=== PATIENT | male | born 1995 | race Caucasian/White ===

== ENCOUNTER 2018-10-17 11:45 | Emergency (ER) | payer OTHER ==
--- NOTE | 2018-10-17 12:33 | ER ---
Nurse's Notes [facility] Name: Gamal Hassan Age: 23 yrs Sex: Male : 1995 Arrival Date: 10/17/2018 Time: 11:47 Bed Waiting Private MD: Jair Ohara Diagnosis: Influenza due to unidentified influenza virus;Bronchitis, not specified as acute or chronic Presentation: 10/17 12:04 Presenting complaint: Father states: Chills and cough since Thursday, exposure to flu A. la1 Transition of care: patient was not received from another setting of care. Onset of symptoms was October 17, 2018. Risk Assessment: Do you want to hurt yourself or someone else? Patient reports no desire to harm self or others. Initial Sepsis Screen: Does the patient meet any 2 criteria? No. Patient's initial sepsis screen is negative. Does the patient have a suspected source of infection? No. Patient's initial sepsis screen is negative. Care prior to arrival: None. 12:04 Method Of Arrival: Ambulatory la1 12:04 Acuity: VIKY 4 la1 Historical: - Allergies: 12:05 No Known Allergies; la1 - PMHx: 12:05 Hypothyroidism; la1 - Immunization history:: Adult Immunizations up to date. - Social history:: Smoking status: Patient/guardian denies using tobacco. - Ebola Screening: : No symptoms or risks identified at this time. Screenin:17 Abuse screen: Denies threats or abuse. Nutritional screening: No deficits noted. la1 Tuberculosis screening: No symptoms or risk factors identified. Fall Risk None identified. Assessment: 12:17 General: Appears in no apparent distress. Behavior is calm, cooperative. Pain: Denies la1 pain. Neuro: Level of Consciousness is awake, alert, obeys commands, Oriented to person, place, time, situation. Cardiovascular: Capillary refill < 3 seconds Patient's skin is warm and dry. Respiratory: Airway is patent Respiratory effort is even, unlabored, Respiratory pattern is regular, symmetrical, Breath sounds are coarse the patient has mild shortness of breath Parent/caregiver reports the patient having cough that is. GI: No signs and/or symptoms were reported involving the gastrointestinal system. : No signs and/or symptoms were reported regarding the genitourinary system. Vital Signs: 12:09 Weight 122.47 kg; Height 5 ft. 11 in. (180.34 cm); la1 12:11 Pulse 120; Resp 18; Temp 100.9; Pulse Ox 96% on R/A; la1 12:09 Body Mass Index 37.66 (122.47 kg, 180.34 cm) la1 ED Course: 11:47 Patient arrived in ED. rg4 11:47 Jair Ohara MD is Private Physician. rg4 12:00 [facility]C [facility] snw 12:00 Jason Foss MD is Attending Physician. snw 12:05 Triage completed. la1 12:05 Arm band placed on left wrist. la1 12:17 Patient has correct armband on for positive identification. la1 12:18 No provider procedures requiring assistance completed. Patient did not have IV access la1 during this emergency room visit. 12:32 Jair Ohara MD is Referral Physician. snw Administered Medications: No medications were administered Outcome: 12:32 Discharge ordered by MD. snw 12:45 Discharged to home ambulatory. la1 12:45 Condition: stable 12:45 Discharge instructions given to patient, Instructed on discharge instructions, follow up and referral plans. medication usage, Demonstrated understanding of instructions, follow-up care, medications, Prescriptions given X 3. 12:45 Patient left the ED. la1 Signatures: Jennifer Ramirez FNP-C FNP-[place] Ector Correia, RN RN la1 Swetha Sales rg4
--- NOTE | 2018-10-17 12:33 | EDPHYS ---
Physician Documentation [facility] Name: Gamal Hassan Age: 23 yrs Sex: Male : 1995 Arrival Date: 10/17/2018 Time: 11:47 Bed Waiting Private MD: Jair Ohara ED Physician Jason Foss HPI: 10/17 15:44 This 23 yrs old Male presents to ER via Ambulatory with complaints of Flu snw Symptoms. 15:44 Onset: The symptoms/episode began/occurred suddenly, 3 day(s) ago, and became snw persistent. Associated signs and symptoms: Pertinent positives: congestion, cough, fever, nasal discharge, sore throat. Modifying factors: The patient symptoms are alleviated by nothing. The patient has not experienced similar symptoms in the past, but family has similar symptoms, mother. The patient has not recently seen a physician. flu like s/s x 3 days. Historical: - Allergies: 12:05 No Known Allergies; la1 - PMHx: 12:05 Hypothyroidism; la1 - Immunization history:: Adult Immunizations up to date. - Social history:: Smoking status: Patient/guardian denies using tobacco. - Ebola Screening: : No symptoms or risks identified at this time. ROS: 15:44 Eyes: Negative for injury, pain, redness, and discharge. snw 15:44 Neck: Negative for injury, pain, and swelling, Cardiovascular: Negative for chest pain, palpitations, and edema. 15:44 Abdomen/GI: Negative for abdominal pain, nausea, vomiting, diarrhea, and constipation, Back: Negative for injury and pain, : Negative for injury, bleeding, discharge, and swelling, MS/Extremity: Negative for injury and deformity, Skin: Negative for injury, rash, and discoloration, Neuro: Negative for headache, weakness, numbness, tingling, and seizure. 15:44 Constitutional: Positive for body aches, chills, fatigue, fever, malaise, poor PO intake. 15:44 ENT: Positive for nasal discharge, sore throat. 15:44 Respiratory: Positive for cough, with no reported sputum. Exam: 15:44 Head/Face: Normocephalic, atraumatic. Eyes: Pupils equal round and reactive to light, snw extra-ocular motions intact. Lids and lashes normal. Conjunctiva and sclera are non-icteric and not injected. Cornea within normal limits. Periorbital areas with no swelling, redness, or edema. 15:44 Neck: Trachea midline, no thyromegaly or masses palpated, and no cervical lymphadenopathy. Supple, full range of motion without nuchal rigidity, or vertebral point tenderness. No Meningismus. Chest/axilla: Normal chest wall appearance and motion. Nontender with no deformity. No lesions are appreciated. 15:44 Abdomen/GI: Soft, non-tender, with normal bowel sounds. No distension or tympany. No guarding or rebound. No evidence of tenderness throughout. Back: No spinal tenderness. No costovertebral tenderness. Full range of motion. Skin: Warm, dry with normal turgor. Normal color with no rashes, no lesions, and no evidence of cellulitis. MS/ Extremity: Pulses equal, no cyanosis. Neurovascular intact. Full, normal range of motion. Neuro: Awake and alert, GCS 15, oriented to person, place, time, and situation. Cranial nerves II-XII grossly intact. Motor strength 5/5 in all extremities. Sensory grossly intact. Cerebellar exam normal. Normal gait. Psych: Awake, alert, with orientation to person, place and time. Behavior, mood, and affect are within normal limits. 15:44 Constitutional: The patient appears alert, awake, anxious, restless, uncomfortable. 15:44 ENT: TM's: are normal, Nose: nasal drainage, that is moderate, and is seen coming from both nares, that is clear, Mouth: is normal, Posterior pharynx: no acute changes, Voice: is normal. 15:44 Cardiovascular: Rate: tachycardic, Heart sounds: normal, normal S1and S2. 15:44 Respiratory: the patient does not display signs of respiratory distress, Respirations: normal, Breath sounds: + upper airway congestion. bronchitic cough. Vital Signs: 12:09 Weight 122.47 kg; Height 5 ft. 11 in. (180.34 cm); la1 12:11 Pulse 120; Resp 18; Temp 100.9; Pulse Ox 96% on R/A; la1 12:09 Body Mass Index 37.66 (122.47 kg, 180.34 cm) la1 MDM: 12:31 Patient medically screened. snw 15:47 Data reviewed: vital signs, nurses notes. Data interpreted: Pulse oximetry: on room air snw is 96 %. Interpretation: acceptable. Counseling: I had a detailed discussion with the patient and/or guardian regarding: the historical points, exam findings, and any diagnostic results supporting the discharge/admit diagnosis, the need for outpatient follow up, to return to the emergency department if symptoms worsen or persist or if there are any questions or concerns that arise at home. Special discussion: Based on the history and exam findings, there is no indication for further emergent testing or inpatient evaluation. I discussed with the patient/guardian the need to see the primary care provider for further evaluation of the symptoms. Administered Medications: No medications were administered Disposition: 10/18 11:54 Co-signature as Attending Physician, Jennifer BAUTISTA. Disposition: 10/17/18 12:32 Discharged to Home. Impression: Influenza due to unidentified influenza virus, Bronchitis, not specified as acute or chronic. - Condition is Stable. - Discharge Instructions: Acute Bronchitis, Adult, Fever, Adult, Influenza, Adult, How to Use an Inhaler, Cool Mist Vaporizer, Cough, Adult, Rehydration, Adult. - Prescriptions for Prednisone 20 mg Oral Tablet - take 2 tablet by ORAL route once daily for 5 days; 10 tablet. Albuterol Sulfate 90 mcg/actuation - inhale 1-2 puff by INHALATION route every 4-6 hours; 1 Inhaler. Zithromax 500 mg Oral Tablet - take 1 tablet by ORAL route once daily for 5 days; 5 tablet. - Work release form, Medication Reconciliation Form, Thank You Letter, Antibiotic Education, Prescription Opioid Use, Family Work Release form. - Follow up: Jair Ohara MD; When: 2 - 3 days; Reason: Recheck today's complaints, Continuance of care, Re-evaluation by your physician. Follow up: Emergency Department; When: As needed; Reason: Worsening of condition. Signatures: Jennifer Ramirez FNP-C FNP-[place] Ector Correia RN RN la1 Starr, Gregory, MD MD gs Corrections: (The following items were deleted from the chart) 10/17 12:45 12:32 10/17/2018 12:32 Discharged to Home. Impression: Influenza due to unidentified la1 influenza virus; Bronchitis, not specified as acute or chronic. Condition is Stable. Forms are Medication Reconciliation Form, Thank You Letter, Antibiotic Education, Prescription Opioid Use. Follow up: Jair Ohara; When: 2 - 3 days; Reason: Recheck today's complaints, Continuance of care, Re-evaluation by your physician. Follow up: Emergency Department; When: As needed; Reason: Worsening of condition. snw
[2018-10-17 13:00] VITALS: TEMP 100.9; O2SAT 96
== END 2018-10-17 12:45 | disposition home or self-care (01) ==
LOC: ER 11:45
DX: J11.1 Influenza due to unidentified influenza virus with other respiratory manifestations (principal); J40 Bronchitis, not specified as acute or chronic
CPT/HCPCS: 99281

== ENCOUNTER 2018-11-02 17:47 | Emergency (ER) | payer OTHER ==
[2018-11-02 18:52] LABS: Absolute Lymphocytes (CBC) 2.6 K/uL (0.7-4.9); Absolute Monocytes 0.8 K/uL (0.1-1.3); Absolute Neutrophil 5.4 K/uL (1.8-8.0); Basophils % 0.7 % (0-1.3); Eosinophils % 2.3 % (0-4.4); Hematocrit 42.1 % (39.6-49.0); Lymphocytes % 28.6 % (15.3-44.8); MPV 10.1 fL (7.6-11.3); Monocytes % 8.9 % (3.3-12.3); RBC Red Blood Cell Count 5.01 M/uL (4.33-5.43)
[2018-11-02 18:54] LABS: Protime INR 1.07
[2018-11-02 19:09] LABS: ALT/SGPT 41 U/L (12-78); AST/SGOT 15 U/L (15-37); Albumin 4.3 g/dL (3.4-5.0); Alkaline Phosphatase 70 U/L (45-117); BUN Blood Urea Nitrogen 14 mg/dL (7-18); Bicarbonate 29 mmol/L (21-32); Bilirubin Direct 0.2 mg/dL (0-0.2); Bilirubin Total 0.6 mg/dL (0.2-1.0); Glucose Level 89 mg/dL (74-106); NT PRO-BNP 11 pg/mL (<125); Potassium 3.7 mmol/L (3.5-5.1); Protein, Total 8.3 g/dL (6.4-8.2); Sodium Level 142 mmol/L (136-145); Troponin (Emerg Dept Use Only) < 0.02 ng/mL (0.0-0.045)
[2018-11-02] MEDS ORDERED: LORAZEPAM 1 MG TABLET ONE (19:21)
--- NOTE | 2018-11-02 19:36 | RAD REPORT ---
EXAM DESCRIPTION: Kayy Single View11/02/2018 7:10 pm CLINICAL HISTORY: Chest pain COMPARISON: 2013 FINDINGS: The lungs appear clear of acute infiltrate. The heart is normal size IMPRESSION: No acute abnormalities displayed
--- NOTE | 2018-11-02 20:24 | ER ---
Nurse's Notes [facility] Name: Gamal Hassan Age: 23 yrs Sex: Male : 1995 Arrival Date: 11/02/2018 Time: 17:50 Bed 6 Private MD: Jair Ohara Diagnosis: Shortness of breath Presentation: 11/02 17:59 Presenting complaint: Patient states: palpitation, fatigue, kevin arm weakness x sv "months". Denies CP and SOB at this time. Hx ND d/t synthetic marijuana. Transition of care: patient was not received from another setting of care. Onset of symptoms is unknown. Care prior to arrival: None. 17:59 Method Of Arrival: EMS sv 17:59 Acuity: VIKY 3 sv 19:22 Risk Assessment: Do you want to hurt yourself or someone else? Patient reports no ph desire to harm self or others. Initial Sepsis Screen: Does the patient meet any 2 criteria? No. Patient's initial sepsis screen is negative. Does the patient have a suspected source of infection? No. Patient's initial sepsis screen is negative. Historical: - Allergies: 18:01 No Known Allergies; sv - PMHx: 18:01 Hypothyroidism; Myocardial infarction; Heart Murmur; sv - PSHx: 18:01 None; sv - Immunization history:: Adult Immunizations unknown. - Social history:: Patient/guardian denies using alcohol, street drugs, The patient lives with family, Smoking status: Patient/guardian denies using tobacco. - Family history:: not pertinent. - Ebola Screening: : No symptoms or risks identified at this time. Screenin:22 Abuse screen: Denies threats or abuse. Denies injuries from another. Nutritional ph screening: No deficits noted. Tuberculosis screening: No symptoms or risk factors identified. Fall Risk None identified. Assessment: 18:30 General: Appears in no apparent distress. comfortable, obese, well groomed, Behavior is ph calm, cooperative, appropriate for age, Reports fatigue for >3 days, Denies fever, feeling ill. Pain: Denies pain. Neuro: Level of Consciousness is awake, alert, obeys commands, Oriented to person, place, time, situation, [employer] are equal bilaterally Moves all extremities. Full function Gait is steady, Speech is normal, Facial symmetry appears normal, Reports weakness in right arm and left arm that is intermittent. Cardiovascular: Reports fatigue, palpitations, shortness of breath, since approx 2 mnths Denies chest pain, nausea, syncope, vomiting, Capillary refill < 3 seconds in bilateral fingers Patient's skin is warm and dry. Rhythm is sinus tachycardia. Respiratory: Airway is patent Respiratory effort is even, unlabored, Respiratory pattern is regular, symmetrical. GI: No signs and/or symptoms were reported involving the gastrointestinal system. Patient currently denies abdominal pain, nausea, vomiting. Derm: Skin is intact, is healthy with good turgor, Skin is pink, warm \\T\\ dry. Musculoskeletal: Circulation, motion, and sensation intact. Range of motion: intact in all extremities. 19:00 General: Appears in no apparent distress. comfortable, Behavior is calm, cooperative, rr5 appropriate for age. Pain: Denies pain. Neuro: Level of Consciousness is awake, alert, obeys commands, Oriented to person, place, time, situation, [employer] Professor [employer] are equal bilaterally Reports numbness in right arm and left arm. Cardiovascular: Capillary refill < 3 seconds Patient's skin is warm and dry. Respiratory: Airway is patent Respiratory effort is even, unlabored, Respiratory pattern is regular, symmetrical. GI: No signs and/or symptoms were reported involving the gastrointestinal system. : No signs and/or symptoms were reported regarding the genitourinary system. EENT: No signs and/or symptoms were reported regarding the EENT system. Derm: Skin is intact, is healthy with good turgor, Skin is pink, warm \\T\\ dry. Musculoskeletal: Circulation, motion, and sensation intact. Range of motion: intact in all extremities. 20:00 Reassessment: Patient appears in no apparent distress at this time. Patient is alert, rr5 oriented x 3, equal unlabored respirations, skin warm/dry/pink. awaiting for review. 20:40 Reassessment: Patient appears in no apparent distress at this time. Patient is alert, rr5 oriented x 3, equal unlabored respirations, skin warm/dry/pink. discharge instruction given and explained without complaints made. Patient states feeling better. Patient states symptoms have improved. Vital Signs: 18:01 BP 133 / 97; Pulse 96; Resp 18; Temp 97.5; Pulse Ox 100% ; Weight 125.19 kg; Height 5 sv ft. 10 in. (177.80 cm); 19:23 BP 148 / 85; Pulse 95; Resp 18; Pulse Ox 99% on R/A; ph 20:00 BP 125 / 70; Pulse 98; Resp 19; Pulse Ox 99% ; rr5 20:50 BP 121 / 76; Pulse 91; Resp 17; Pulse Ox 100% ; rr5 18:01 Body Mass Index 39.60 (125.19 kg, 177.80 cm) ED Course: 17:50 Patient arrived in ED. mr 17:51 Jair Ohara MD is Private Physician. mr 18:00 Triage completed. sv 18:01 Arm band placed on. sv 18:05 Héctor Obrien MD is Attending Physician. ma2 18:23 Anne Ledesma, GEORGE is Primary Nurse. ph 18:39 Initial lab(s) drawn, by al, sent to lab. EKG done, by ED staff, reviewed by Héctor Obrien MD. Inserted saline lock: 20 gauge in right antecubital area, using aseptic technique. Blood collected. 19:08 X-ray completed. Portable x-ray completed in exam room. Patient tolerated procedure ml well. 19:10 XRAY Chest (1 view) In Process Unspecified. EDMS 19:23 Patient has correct armband on for positive identification. Bed in low position. Call ph light in reach. Side rails up X 1. hospital monitor on. Pulse ox on. NIBP on. 19:23 No provider procedures requiring assistance completed. ph 20:39 IV discontinued, intact, bleeding controlled, No redness/swelling at site. Pressure rr5 dressing applied. Administered Medications: 19:20 Drug: Ativan 2 mg Route: PO; ph 19:23 Follow up: Response: No adverse reaction ph Outcome: 20:23 Discharge ordered by . ma2 20:39 Discharged to home ambulatory, with family. rr5 20:39 Condition: stable 20:39 Discharge instructions given to patient, Instructed on discharge instructions, follow up and referral plans. medication usage, Demonstrated understanding of instructions, follow-up care, medications, Prescriptions given X 2. 20:40 Patient left the ED. rr5 Signatures: Dispatcher [employer] EDMS Astrid Duran RN RN Sarkis, [place] Garg, Nitesh He em1 Anne Ledesma RN RN Héctor Obrien MD MD ma2 Alex Robles RN RN rr5 Corrections: (The following items were deleted from the chart) 18:01 18:01 125.19 kg; Height 5 ft. 10 in.; BMI: 39.6; sv sv
--- NOTE | 2018-11-02 20:24 | EDPHYS ---
Physician Documentation [facility] Name: Gamal Hassan Age: 23 yrs Sex: Male : 1995 Arrival Date: 11/02/2018 Time: 17:50 Bed 6 Private MD: Jair Ohara ED Physician Héctor Obrien HPI: 11/02 18:49 This 23 yrs old Male presents to ER via EMS with complaints of Palpitations, ma2 Numbness Of Arm. 18:49 The patient presents with a history of heart racing. Onset: The symptoms/episode ma2 began/occurred gradually, 2 day(s) ago. Duration: The patient or guardian reports multiple episodes. Associated signs and symptoms: Pertinent negatives: fever, lightheadedness, syncope, unusual stressors. Severity of symptoms: At their worst the symptoms were mild in the emergency department the symptoms have resolved. Historical: - Allergies: 18:01 No Known Allergies; sv - PMHx: 18:01 Hypothyroidism; Myocardial infarction; Heart Murmur; sv - PSHx: 18:01 None; sv - Immunization history:: Adult Immunizations unknown. - Social history:: Patient/guardian denies using alcohol, street drugs, The patient lives with family, Smoking status: Patient/guardian denies using tobacco. - Family history:: not pertinent. - Ebola Screening: : No symptoms or risks identified at this time. ROS: 18:49 Constitutional: Negative for fever, chills, and weight loss, Cardiovascular: Negative ma2 for chest pain, palpitations, and edema, Respiratory: Negative for shortness of breath, cough, wheezing, and pleuritic chest pain, Abdomen/GI: Negative for abdominal pain, nausea, diarrhea, and constipation, Allergy/Immunology: Negative for hives, rash, and allergies. 18:49 All other systems are negative. Exam: 18:49 Constitutional: This is a well developed, well nourished patient who is awake, alert, ma2 and in no acute distress. Eyes: Pupils equal round and reactive to light, extra-ocular motions intact. Lids and lashes normal. Conjunctiva and sclera are non-icteric and not injected. Cornea within normal limits. Periorbital areas with no swelling, redness, or edema. ENT: Nares patent. No nasal discharge, no septal abnormalities noted. Tympanic membranes are normal and external auditory canals are clear. Oropharynx with no redness, swelling, or masses, exudates, or evidence of obstruction, uvula midline. Mucous membranes moist. Neck: Trachea midline, no thyromegaly or masses palpated, and no cervical lymphadenopathy. Supple, full range of motion without nuchal rigidity, or vertebral point tenderness. No Meningismus. Chest/axilla: Normal chest wall appearance and motion. Nontender with no deformity. No lesions are appreciated. Cardiovascular: Regular rate and rhythm with a normal S1 and S2. No gallops, murmurs, or rubs. Normal PMI, no JVD. No pulse deficits. Respiratory: Lungs have equal breath sounds bilaterally, clear to auscultation and percussion. No rales, rhonchi or wheezes noted. No increased work of breathing, no retractions or nasal flaring. Abdomen/GI: Soft, non-tender, with normal bowel sounds. No distension or tympany. No guarding or rebound. No evidence of tenderness throughout. MS/ Extremity: Pulses equal, no cyanosis. Neurovascular intact. Full, normal range of motion. Neuro: Awake and alert, GCS 15, oriented to person, place, time, and situation. Cranial nerves II-XII grossly intact. Motor strength 5/5 in all extremities. Sensory grossly intact. Cerebellar exam normal. Normal gait. Vital Signs: 18:01 BP 133 / 97; Pulse 96; Resp 18; Temp 97.5; Pulse Ox 100% ; Weight 125.19 kg; Height 5 sv ft. 10 in. (177.80 cm); 19:23 BP 148 / 85; Pulse 95; Resp 18; Pulse Ox 99% on R/A; ph 20:00 BP 125 / 70; Pulse 98; Resp 19; Pulse Ox 99% ; rr5 20:50 BP 121 / 76; Pulse 91; Resp 17; Pulse Ox 100% ; rr5 18:01 Body Mass Index 39.60 (125.19 kg, 177.80 cm) sv MDM: 18:05 Patient medically screened. ma2 18:49 Differential diagnosis: arrythmia, dehydration, stress disorder. ma2 20:23 Data reviewed: vital signs, nurses notes. Counseling: I had a detailed discussion with ma2 the patient and/or guardian regarding: the historical points, exam findings, and any diagnostic results supporting the discharge/admit diagnosis, the presence of at least one elevated blood pressure reading (>120/80) during this emergency department visit, the need for outpatient follow up. 11/02 18:26 Order name: Basic Metabolic Panel; Complete Time: 19:33 ma2 11/02 18:26 Order name: CBC with Diff; Complete Time: 19:33 ma2 11/02 18:26 Order name: LFT's; Complete Time: 19:33 ma2 11/02 18:26 Order name: Magnesium; Complete Time: 19:33 ma2 11/02 18:26 Order name: NT PRO-BNP; Complete Time: 19:33 ma2 11/02 18:26 Order name: PT-INR; Complete Time: 19:33 ma2 11/02 18:05 Order name: EKG - Nurse/Tech; Complete Time: 18:39 ma2 11/02 18:26 Order name: Troponin (emerg Dept Use Only); Complete Time: 19:33 ma2 11/02 18:26 Order name: XRAY Chest (1 view); Complete Time: 20:01 ma2 11/02 18:26 Order name: Cardiac monitoring; Complete Time: 18:38 ma2 11/02 18:40 Order name: TSH; Complete Time: 20:14 ma2 11/02 18:40 Order name: T4 Free; Complete Time: 20:14 ma2 11/02 18:26 Order name: IV Saline Lock; Complete Time: 18:38 ma2 11/02 18:26 Order name: Labs collected and sent; Complete Time: 18:38 ma2 11/02 18:26 Order name: O2 Per Protocol; Complete Time: 18:38 ma2 11/02 18:26 Order name: O2 Sat Monitoring; Complete Time: 18:38 ma2 Administered Medications: 19:20 Drug: Ativan 2 mg Route: PO; ph 19:23 Follow up: Response: No adverse reaction ph Disposition: 11/02/18 20:23 Discharged to Home. Impression: Shortness of breath. - Condition is Stable. - Discharge Instructions: Hypothyroidism, Shortness of Breath, [id number]. - Prescriptions for Ativan 0.5 mg Oral Tablet - take 1 tablet by ORAL route every 8 hours As needed; 20 tablet. Levothyroxine 50 mcg Oral Tablet - take 1 tablet by ORAL route once daily take 30 minutes before breakfast; 20 tablet. - Medication Reconciliation Form, Thank You Letter, Antibiotic Education, Prescription Opioid Use form. - Follow up: Private Physician; When: Tomorrow; Reason: Continuance of care. Signatures: Dispatcher [employer] Astrid Terrazas, RN RN Anne Ledesma RN RN Héctor Obrien MD MD ma2 Alex Robles RN RN rr5 Corrections: (The following items were deleted from the chart) 20:40 20:23 11/02/2018 20:23 Discharged to Home. Impression: Shortness of breath. Condition rr5 is Stable. Discharge Instructions: Shortness of Breath, [id number]. Prescriptions for Ativan 0.5 mg Oral Tablet - take 1 tablet by ORAL route every 8 hours As needed; 20 tablet, Levothyroxine 50 mcg Oral Tablet - take 1 tablet by ORAL route once daily take 30 minutes before breakfast; 20 tablet. and Forms are Medication Reconciliation Form, Thank You Letter, Antibiotic Education, Prescription Opioid Use. Follow up: Private Physician; When: Tomorrow; Reason: Continuance of care. de2
[2018-11-02 20:45] VITALS: TEMP 97.5
[2018-11-02 20:46] VITALS: BP 148/85; O2SAT 99
--- NOTE | 2018-11-03 12:22 | EKG ---
Test Date: 2018-11-02 Test Time: 18:08:30 Email Marketing Specialist: ALEJANDRA MEASUREMENT RESULTS: Intervals: Rate: 107 W[place]: 130 QRSD: 82 QT: 334 QTc: 445 [place]: P: 43 [place]: 130 QRS: 50 T: 53 INTERPRETIVE STATEMENTS: Sinus tachycardia Possible Inferior infarct, age undetermined Abnormal ECG Compared to ECG 03/15/2014 04:09:12 Sinus rhythm no longer present Myocardial infarct finding still present Electronically Signed On 11-03-18 12:21:14 CDT by Horace Berry
== END 2018-11-02 20:40 | disposition home or self-care (01) ==
LOC: ER 17:47
DX: R06.02 Shortness of breath (principal)
CPT/HCPCS: 36415; 71045; 80048; 80076; 83735; 83880; 84439; 84443; 84484; 85025; 85610; 93005; 99285

== ENCOUNTER 2020-04-01 09:56 | Emergency (ER) | payer OTHER, SELFPAY ==
[2020-04-01] MEDS ORDERED: METOCLOPRAMIDE 10 MG/2mL INJ ONE (11:19)
[2020-04-01] MEDS ORDERED: NA CHLORIDE 0.9% 1,000 ML ONE (11:20)
[2020-04-01] MEDS ORDERED: KETOROLAC 30 MG/ML INJ ONE (11:20)
[2020-04-01] MEDS ORDERED: DIPHENHYDRAMINE 50 MG/ML VIAL ONE (11:20)
--- NOTE | 2020-04-01 11:30 | RAD REPORT ---
EXAM DESCRIPTION: CT - Head Brain Wo Cont - 04/01/2020 11:14 am CLINICAL HISTORY: Headache COMPARISON: None TECHNIQUE: Computed axial tomography of the head was obtained. IV contrast was not requested. All CT scans are performed using dose optimization technique as appropriate and may include automated exposure control or mA/KV adjustment according to patient size. FINDINGS: An intracranial bleed is not seen . The ventricles are normal in caliber. No extra-axial fluid collection is noted. Fluid within the sinuses/ mastoids is not seen. Large mucous retention cyst right maxillary sinus IMPRESSION: No acute intracranial abnormality is seen. If patient's symptoms persist MRI of the bra in would be recommended.
[2020-04-01 11:51] LABS: Absolute Lymphocytes (CBC) 2.2 K/uL (0.7-4.9); Basophils % 1.1 % (0-1.3); Hematocrit 44.6 % (39.6-49.0); Lymphocytes % 32.3 % (15.3-44.8); MPV 9.8 fL (7.6-11.3); RBC Red Blood Cell Count 5.21 M/uL (4.33-5.43)
[2020-04-01 11:57] LABS: ALT/SGPT 73 U/L (12-78); AST/SGOT 26 U/L (15-37); Albumin 4.1 g/dL (3.4-5.0); Alkaline Phosphatase 67 U/L (45-117); BUN Blood Urea Nitrogen 9 mg/dL (7-18); Bicarbonate 28 mmol/L (21-32); Bilirubin Total 0.5 mg/dL (0.2-1.0); Glucose Level 99 mg/dL (74-106); Potassium 4.3 mmol/L (3.5-5.1); Protein, Total 8.5 g/dL (6.4-8.2); Sodium Level 141 mmol/L (136-145)
--- NOTE | 2020-04-01 12:02 | EDPHYS ---
Physician Documentation [facility] Name: Gamal Hassan Age: 25 yrs Sex: Male : 1995 Arrival Date: 04/01/2020 Time: 09:59 Bed 13 Private MD: ED Physician Héctor Obrien HPI: 04/01 11:11 This 25 yrs old Male presents to ER via Ambulatory with complaints of ma2 Headache. 11:11 The patient complains of pain to the right rastafari. The patient describes the headache ma2 as constant. Onset: The symptoms/episode began/occurred gradually, 3 week(s) ago. Associated signs and symptoms: Pertinent negatives: dizziness, nausea, paresthesias, Photophobia vision loss, vomiting. Severity of symptoms: At its worst the pain was mild, in the emergency department the pain is unchanged. Headache History: The patient has had previous headaches and this one is similar to previous episodes. The patient has experienced similar episodes in the past. Historical: - Allergies: 10:11 No Known Allergies; hb - Home Meds: 10:11 None [Active]; hb - PMHx: 10:11 Heart Murmur; Hypothyroidism; Myocardial infarction; hb - PSHx: 10:11 None; hb - Immunization history:: Adult Immunizations up to date. - Social history:: Smoking status: Patient denies any tobacco usage or history of. Patient/guardian denies using alcohol, street drugs, The patient lives alone, with spouse. - Family history:: not pertinent. ROS: 11:11 Constitutional: Negative for fever, chills, and weight loss. ma2 11:11 All other systems are negative. Exam: 11:11 Constitutional: This is a well developed, well nourished patient who is awake, alert, ma2 and in no acute distress. Head/Face: Normocephalic, atraumatic. Eyes: Pupils equal round and reactive to light, extra-ocular motions intact. Lids and lashes normal. Conjunctiva and sclera are non-icteric and not injected. Cornea within normal limits. Periorbital areas with no swelling, redness, or edema. Cardiovascular: Regular rate and rhythm with a normal S1 and S2. No gallops, murmurs, or rubs. Normal PMI, no JVD. No pulse deficits. Respiratory: Lungs have equal breath sounds bilaterally, clear to auscultation and percussion. No rales, rhonchi or wheezes noted. No increased work of breathing, no retractions or nasal flaring. Abdomen/GI: Soft, non-tender, with normal bowel sounds. No distension or tympany. No guarding or rebound. No evidence of tenderness throughout. Back: No spinal tenderness. No costovertebral tenderness. Full range of motion. Skin: Warm, dry with normal turgor. Normal color with no rashes, no lesions, and no evidence of cellulitis. MS/ Extremity: Pulses equal, no cyanosis. Neurovascular intact. Full, normal range of motion. Neuro: Awake and alert, GCS 15, oriented to person, place, time, and situation. Cranial nerves II-XII grossly intact. Motor strength 5/5 in all extremities. Sensory grossly intact. Cerebellar exam normal. Normal gait. Psych: Awake, alert, with orientation to person, place and time. Behavior, mood, and affect are within normal limits. Vital Signs: 10:09 BP 178 / 112; Pulse 87; Resp 16; Temp 97.8; Pulse Ox 100% on R/A; Weight 136.08 kg; hb Height 5 ft. 10 in. (177.80 cm); Pain 7/10; 11:48 BP 113 / 64; Pulse 67; Resp 16; Pulse Ox 98% on R/A; sv 10:09 Body Mass Index 43.05 (136.08 kg, 177.80 cm) hb Christin Coma Score: 11:11 Eye Response: spontaneous(4). Verbal Response: oriented(5). Motor Response: obeys ma2 commands(6). Total: 15. MDM: 10:12 Patient medically screened. ma2 11:11 Differential diagnosis: migraine, otitis, sinusitis, trigeminal neuralgia, vasomotor ma2 headache. 12:01 Data reviewed: vital signs, nurses notes. Counseling: I had a detailed discussion with maLucero the patient and/or guardian regarding: the historical points, exam findings, and any diagnostic results supporting the discharge/admit diagnosis, the presence of at least one elevated blood pressure reading (>120/80) during this emergency department visit, the need for outpatient follow up. Response to treatment: the patient's symptoms have markedly improved after treatment. 04/01 10:52 Order name: CMP [facility] 04/01 10:52 Order name: CBC with Diff; Complete Time: 12:01 [facility] 04/01 10:52 Order name: CT Head Brain wo Cont; Complete Time: 11:32 [facility] 04/01 10:52 Order name: Comprehensive Metabolic Panel; Complete Time: 12:01 EDMS Administered Medications: 11:32 Drug: NS 0.9% 1000 ml Route: IV; Rate: 1 bolus; Site: right antecubital; sv 13:12 Follow up: IV Status: Completed infusion; IV Intake: 1000ml ls4 11:32 Drug: TORadol 30 mg Route: IVP; Site: right antecubital; sv 13:11 Follow up: Response: No adverse reaction; Marked relief of symptoms; Pain is decreased ls4 11:34 Drug: Benadryl 50 mg Route: IVP; Site: right antecubital; sv 13:11 Follow up: Response: No adverse reaction; Marked relief of symptoms ls4 11:36 Drug: Reglan 10 mg Route: IVP; Site: right antecubital; sv 13:12 Follow up: Response: No adverse reaction; Marked relief of symptoms; Pain is decreased ls4 Disposition: 04/01/20 12:02 Discharged to Home. Impression: Migraine without aura, not intractable. - Condition is Stable. - Discharge Instructions: Migraine Headache, [id number]. - Prescriptions for Reglan 10 mg Oral Tablet - take 1 tablet by ORAL route every 6 hours take 30 minutes before meals and at bedtime; 20 tablet. - Medication Reconciliation Form, Thank You Letter, Antibiotic Education, Prescription Opioid Use form. - Follow up: Private Physician; When: Tomorrow; Reason: Recheck today's complaints, Continuance of care. Signatures: Dispatcher [employer] EDMS Astrid Duran RN RN Cecile Gaytan RN RN Héctor Obrien MD MD wa2 Cristiane Seymour RN RN ls4 Corrections: (The following items were deleted from the chart) 13:13 12:02 04/01/2020 12:02 Discharged to Home. Impression: Migraine without aura, not ls4 intractable. Condition is Stable. Prescriptions for Reglan 10 mg Oral Tablet - take 1 tablet by ORAL route every 6 hours take 30 minutes before meals and at bedtime; 20 tablet. and Forms are Medication Reconciliation Form, Thank You Letter, Antibiotic Education, Prescription Opioid Use. Follow up: Private Physician; When: Tomorrow; Reason: Recheck today's complaints, Continuance of care. ma2
--- NOTE | 2020-04-01 12:02 | ER ---
Nurse's Notes [facility] Name: Gamal Hassan Age: 25 yrs Sex: Male : 1995 Arrival Date: 04/01/2020 Time: 09:59 Bed 13 Private MD: Diagnosis: Migraine without aura, not intractable Presentation: 04/01 10:09 Chief complaint: Right sided headache + photosensitivity x 1 month. Coronavirus screen: hb At this time, the client does not indicate any symptoms associated with coronavirus-19. Ebola Screen: No symptoms or risks identified at this time. Initial Sepsis Screen: Does the patient meet any 2 criteria? No. Patient's initial sepsis screen is negative. Does the patient have a suspected source of infection? No. Patient's initial sepsis screen is negative. Risk Assessment: Do you want to hurt yourself or someone else? Patient reports no desire to harm self or others. Onset of symptoms was February 2020. 10:09 Method Of Arrival: Ambulatory hb 10:09 Acuity: VIKY 3 hb Triage Assessment: 13:13 Headache History: Denies prior headaches. General: Appears in no apparent distress. ls4 comfortable. Pain: Pain currently is 0 out of 10 on a pain scale. Historical: - Allergies: 10:11 No Known Allergies; hb - Home Meds: 10:11 None [Active]; hb - PMHx: 10:11 Heart Murmur; Hypothyroidism; Myocardial infarction; hb - PSHx: 10:11 None; hb - Immunization history:: Adult Immunizations up to date. - Social history:: Smoking status: Patient denies any tobacco usage or history of. Patient/guardian denies using alcohol, street drugs, The patient lives alone, with spouse. - Family history:: not pertinent. Screenin:12 Abuse screen: Denies threats or abuse. Denies injuries from another. Nutritional sv screening: No deficits noted. Tuberculosis screening: No symptoms or risk factors identified. Fall Risk None identified. Assessment: 11:30 General: Appears in no apparent distress. uncomfortable, well groomed, well developed, sv Behavior is calm, cooperative, appropriate for age. Pain: Complains of pain in right frontal area and right temporal area Pain currently is 7 out of 10 on a pain scale. Pain began a month ago Is intermittent. Neuro: Level of Consciousness is awake, alert, obeys commands, Oriented to person, place, time, situation, Moves all extremities. Full function Gait is steady, Speech is normal, Facial symmetry appears normal, Reports headache in right. Cardiovascular: Patient's skin is warm and dry. Respiratory: Airway is patent Respiratory effort is even, unlabored, Respiratory pattern is regular, symmetrical. Derm: Skin is pink, warm \T\ dry. Musculoskeletal: Range of motion: intact in all extremities. 12:00 Reassessment: Patient appears in no apparent distress at this time. Patient and/or sv family updated on plan of care and expected duration. Pain level reassessed. Patient is alert, oriented x 3, equal unlabored respirations, skin warm/dry/pink. Patient states feeling better. Patient states symptoms have improved. 13:12 Reassessment: Fluids completed. pt discharge delayed due to infusion. ls4 Vital Signs: 10:09 BP 178 / 112; Pulse 87; Resp 16; Temp 97.8; Pulse Ox 100% on R/A; Weight 136.08 kg; hb Height 5 ft. 10 in. (177.80 cm); Pain 7/10; 11:48 BP 113 / 64; Pulse 67; Resp 16; Pulse Ox 98% on R/A; sv 10:09 Body Mass Index 43.05 (136.08 kg, 177.80 cm) hb Christin Coma Score: 11:11 Eye Response: spontaneous(4). Verbal Response: oriented(5). Motor Response: obeys ma2 commands(6). Total: 15. ED Course: 09:59 Patient arrived in ED. mr 10:10 Triage completed. hb 10:11 Arm band placed on. hb 10:12 Héctor Obrien MD is Attending Physician. ma2 10:12 Astrid Duran, GEORGE is Primary Nurse. sv 10:12 Patient has correct armband on for positive identification. Bed in low position. Call light in reach. 10:44 ED physician to see patient. sv 11:14 CT Head Brain wo Cont In Process Unspecified. EDMS 11:14 CT completed. Patient tolerated procedure well. Patient moved back from CT. bq 11:39 CMP Sent. sv 13:13 No provider procedures requiring assistance completed. IV discontinued, intact, ls4 bleeding controlled, No redness/swelling at site. Pressure dressing applied. Administered Medications: 11:32 Drug: NS 0.9% 1000 ml Route: IV; Rate: 1 bolus; Site: right antecubital; sv 13:12 Follow up: IV Status: Completed infusion; IV Intake: 1000ml ls4 11:32 Drug: TORadol 30 mg Route: IVP; Site: right antecubital; sv 13:11 Follow up: Response: No adverse reaction; Marked relief of symptoms; Pain is decreased ls4 11:34 Drug: Benadryl 50 mg Route: IVP; Site: right antecubital; sv 13:11 Follow up: Response: No adverse reaction; Marked relief of symptoms ls4 11:36 Drug: Reglan 10 mg Route: IVP; Site: right antecubital; sv 13:12 Follow up: Response: No adverse reaction; Marked relief of symptoms; Pain is decreased ls4 Intake: 13:12 IV: 1000ml; Total: 1000ml. ls4 Outcome: 12:02 Discharge ordered by MD. spencer 13:12 Discharged to home ambulatory. ls4 13:12 Condition: good 13:12 Discharge instructions given to patient, Instructed on discharge instructions, follow up and referral plans. medication usage, Demonstrated understanding of instructions, follow-up care, medications, Prescriptions given X 1. 13:13 Patient left the ED. ls4 Signatures: Dispatcher [employer] Astrid Terrazas RN RN sv Rivera, Mary mr Quilty, Betty bq Baxter, Heather, RN RN hb Alzahri, Mohammad, MD MD ma2 Stewart, Lisa, RN RN ls4
[2020-04-01 13:18] VITALS: TEMP 97.8
[2020-04-01 13:20] VITALS: BP 113/64; O2SAT 98
== END 2020-04-01 13:13 | disposition home or self-care (01) ==
LOC: ER 09:56
DX: G43.009 Migraine without aura, not intractable, without status migrainosus (principal); R01.1 Cardiac murmur, unspecified
CPT/HCPCS: 36415; 70450; 80053; 85025; 96361; 96374; 96375; 99284; J1200; J2765; J7030

== ENCOUNTER 2020-04-14 20:00 | Emergency (ER) | payer SELFPAY ==
[2020-04-14] MEDS ORDERED: DIPHENHYDRAMINE 50 MG/ML VIAL ONE (22:34)
[2020-04-14] MEDS ORDERED: KETOROLAC 30 MG/ML INJ ONE (22:35)
[2020-04-14] MEDS ORDERED: NA CHLORIDE 0.9% 1,000 ML ONE (22:35)
--- NOTE | 2020-04-15 00:22 | EDPHYS ---
Physician Documentation [facility] Name: Gamal Hassan Age: 25 yrs Sex: Male : 1995 Arrival Date: 04/14/2020 Time: 20:02 Bed 20 Private MD: ED Physician Manuel Gamez HPI: 04/14 22:06 This 25 yrs old Male presents to ER via Ambulatory with complaints of mh7 Headache. 22:06 The patient complains of pain to the right frontal area, right side of the back of mh7 head, right temporal area and right occipital area. The patient describes the headache as intermittent, throbbing, waxing and waning. Onset: The symptoms/episode began/occurred 3 month(s) ago. 22:08 Onset: The symptoms/episode began/occurred gradually. Associated signs and symptoms: mh7 Pertinent positives: Photophobia right lower toothache for one week. Associated signs and symptoms: Pertinent negatives: altered mental status, dizziness, fever, malaise, nausea, neck stiffness, paresthesias, rash, sinus congestion, sinus tenderness, vision changes, vision loss, vomiting, weakness, vertigo. Severity of symptoms: At its worst the pain was moderate, 7 day(s) ago, in the emergency department the pain has improved, moderately. Headache History: The patient has had previous headaches and this one is similar to previous episodes. The symptoms are alleviated by Darkened room, over the counter pain medication, OTC NSAIDS, quiet, the symptoms are aggravated by lights, movement, noise, stress. The patient has experienced similar episodes in the past, several times. The patient has been recently seen at the [facility] Emergency Department, a couple of weeks ago. Patient states migraines flare up for the past 3 months. He has also had right lower tooth pain for the past week which he thinks may be contributing recently to headaches. Pain is worse with light exposure. He denies any neck pain, fever, nausea, vomiting, chest pain, abdominal pain, numbness/tingling, or weakness.. Historical: - Allergies: 20:59 No Known Allergies; vc - Home Meds: 20:59 levothyroxine oral [Active]; vc - PMHx: 20:59 Heart Murmur; Hypothyroidism; Myocardial infarction; Stefanie disease; vc - PSHx: 20:59 None; vc - Immunization history:: Adult Immunizations up to date. - Social history:: Smoking status: Patient denies any tobacco usage or history of. ROS: 22:08 Constitutional: Negative for fever, chills, and weight loss, Eyes: Negative for injury, mh7 pain, redness, and discharge, Neck: Negative for injury, pain, and swelling, Cardiovascular: Negative for chest pain, palpitations, and edema, Respiratory: Negative for shortness of breath, cough, wheezing, and pleuritic chest pain, Abdomen/GI: Negative for abdominal pain, nausea, vomiting, diarrhea, and constipation, Back: Negative for injury and pain, : Negative for injury, bleeding, discharge, and swelling, MS/Extremity: Negative for injury and deformity, Skin: Negative for injury, rash, and discoloration, Psych: Negative for depression, anxiety, suicide ideation, homicidal ideation, and hallucinations, Allergy/Immunology: Negative for hives, rash, and allergies, Endocrine: Negative for neck swelling, polydipsia, polyuria, polyphagia, and marked weight changes, Hematologic/Lymphatic: Negative for swollen nodes, abnormal bleeding, and unusual bruising. Exam: 22:08 Constitutional: This is a well developed, well nourished patient who is awake, alert, mh7 and in no acute distress. 22:08 Eyes: Pupils equal round and reactive to light, extra-ocular motions intact. Lids and lashes normal. Conjunctiva and sclera are non-icteric and not injected. Cornea within normal limits. Periorbital areas with no swelling, redness, or edema. Neck: Trachea midline, no thyromegaly or masses palpated, and no cervical lymphadenopathy. Supple, full range of motion without nuchal rigidity, or vertebral point tenderness. No Meningismus. Chest/axilla: Normal chest wall appearance and motion. Nontender with no deformity. No lesions are appreciated. Cardiovascular: Regular rate and rhythm with a normal S1 and S2. No gallops, murmurs, or rubs. Normal PMI, no JVD. No pulse deficits. Respiratory: Lungs have equal breath sounds bilaterally, clear to auscultation and percussion. No rales, rhonchi or wheezes noted. No increased work of breathing, no retractions or nasal flaring. Abdomen/GI: Soft, non-tender, with normal bowel sounds. No distension or tympany. No guarding or rebound. No evidence of tenderness throughout. Back: No spinal tenderness. No costovertebral tenderness. Full range of motion. Skin: Warm, dry with normal turgor. Normal color with no rashes, no lesions, and no evidence of cellulitis. MS/ Extremity: Pulses equal, no cyanosis. Neurovascular intact. Full, normal range of motion. Neuro: Awake and alert, GCS 15, oriented to person, place, time, and situation. Cranial nerves II-XII grossly intact. Motor strength 5/5 in all extremities. Sensory grossly intact. Cerebellar exam normal. Normal gait. Psych: Awake, alert, with orientation to person, place and time. Behavior, mood, and affect are within normal limits. 22:08 Head/face: Noted is tenderness, that is moderate, of the right scalp. 22:08 ENT: External ear(s): are unremarkable, Ear canal(s): are normal, TM's: are normal, Nose: is normal, Mouth: is normal, Posterior pharynx: is normal, Dental exam: pain, that is moderate, specifically in the lower right third molar (#32). Vital Signs: 20:54 BP 152 / 92; Pulse 104; Resp 25; Temp 98.6; Pulse Ox 97% ; Weight 136.08 kg; Height 5 vc ft. 10 in. (177.80 cm); Pain 7/10; 23:00 BP 141 / 87; Pulse 87; Resp 16; Pulse Ox 98% on R/A; jb4 04/15 00:00 BP 142 / 89; Pulse 78; Resp 16; Pulse Ox 97% ; Pain 0/10; jb4 04/14 20:54 Body Mass Index 43.05 (136.08 kg, 177.80 cm) vc [place] Coma Score: 00:19 Eye Response: spontaneous(4). Verbal Response: oriented(5). Motor Response: obeys [facility] commands(6). Total: 15. MDM: 04/14 21:44 Patient medically screened. [facility] 04/15 00:19 Differential diagnosis: cluster headache, migraine, tension headache. Data reviewed: [facility] vital signs, nurses notes, old medical records. Data interpreted: Pulse oximetry: on room air is 98 %. Interpretation: normal. Counseling: I had a detailed discussion with the patient and/or guardian regarding: the historical points, exam findings, and any diagnostic results supporting the discharge/admit diagnosis, the presence of at least one elevated blood pressure reading (>120/80) during this emergency department visit, the need for outpatient follow up, a neurologist, to return to the emergency department if symptoms worsen or persist or if there are any questions or concerns that arise at home. Response to treatment: the patient's symptoms have resolved after treatment, the patient's blood pressure is in an acceptable range, mental status has returned to baseline, the patient no longer shows bradycardia, the patient is not short of breath, the patient is not tachycardic, the patient's pain is gone, the patient's temperature has normalized. 04/14 21:48 Order name: Saline Lock; Complete Time: 23:06 [facility] Administered Medications: 04/14 22:30 Drug: NS 0.9% 1000 ml Route: IV; Rate: 1000 ml; Site: left antecubital; [facility] 23:30 Follow up: Response: No adverse reaction; IV Status: Completed infusion [facility] 22:30 Drug: Benadryl 50 mg Route: IVP; Site: left antecubital; [facility] 23:00 Follow up: Response: No adverse reaction; Marked relief of symptoms [facility] 22:30 Drug: TORadol 30 mg Route: IVP; Site: left antecubital; 4 04/15 00:40 Follow up: Response: No adverse reaction; Marked relief of symptoms; Pain is decreased [facility] 04/14 23:07 Not Given (Medication not held in hospital.): Compazine 10 mg IVP once 4 Disposition: 04/15 07:01 Co-signature as Attending Physician, Manuel Gamez MD. [facility] Disposition: 04/15/20 00:22 Discharged to Home. Impression: Headache, Dental Pain. - Condition is Stable. - Discharge Instructions: Dental Pain, [id number], General Headache Without Cause, [id number]. - Prescriptions for Fioricet 50- 325-40 mg Oral tablet - take 1 tablet by ORAL route every 6 hours As needed; 15 tablet. Augmentin 500- 125 mg Oral Tablet - take 1 tablet by ORAL route every 8 hours for 7 days; 21 tablet. Ibuprofen 800 mg Oral Tablet - take 1 tablet by ORAL route every 8 hours As needed take with food; 15 tablet. - Medication Reconciliation Form, Thank You Letter, Antibiotic Education, Prescription Opioid Use form. - Follow up: Private Physician; When: 1 - 2 days; Reason: Worsening of condition, Recheck today's complaints, Continuance of care, Re-evaluation by your physician. Follow up: Bradley Moralez DDS; When: 2 - 3 days; Reason: Worsening of condition, Recheck today's complaints. Follow up: Tc Urena MD; When: 1 - 2 days; Reason: Worsening of condition, Recheck today's complaints. - Problem is an acute exacerbation. - Symptoms have improved. Signatures: Bishnu Combs RN RN jb4 Veronica Gold RN RN vc Manuel Gamez MD MD mh7 Corrections: (The following items were deleted from the chart) 00:39 00:22 04/15/2020 00:22 Discharged to Home. Impression: Headache; Dental Pain. Condition jb4 is Stable. Forms are Medication Reconciliation Form, Thank You Letter, Antibiotic Education, Prescription Opioid Use. Follow up: Private Physician; When: 1 - 2 days; Reason: Worsening of condition, Recheck today's complaints, Continuance of care, Re-evaluation by your physician. Follow up: Bradley Moralez; When: 2 - 3 days; Reason: Worsening of condition, Recheck today's complaints. Follow up: Tc Uerna; When: 1 - 2 days; Reason: Worsening of condition, Recheck today's complaints. Problem is an acute exacerbation. Symptoms have improved. mh7
--- NOTE | 2020-04-15 00:22 | ER ---
Nurse's Notes [facility] Name: Gamal Hassan Age: 25 yrs Sex: Male : 1995 Arrival Date: 04/14/2020 Time: 20:02 Bed 20 Private MD: Diagnosis: Headache;Dental Pain Presentation: 04/14 20:54 Chief complaint: Patient states: "For the last 3 months I have been getting migraines, vc I'm having some tooth pain on the right side of my mouth and I don't know if this is causing my migraine or not.". Coronavirus screen: Client denies travel out of the [place] in the last 14 days. At this time, the client does not indicate any symptoms associated with coronavirus-19. Ebola Screen: No symptoms or risks identified at this time. Initial Sepsis Screen: Does the patient meet any 2 criteria? RR > 20 per min. HR > 90 bpm. Yes. Risk Assessment: Do you want to hurt yourself or someone else? Patient reports no desire to harm self or others. Onset of symptoms is unknown. 20:54 Method Of Arrival: Ambulatory vc 20:54 Acuity: VIKY 3 vc 20:54 Acuity: VIKY 3 vc Historical: - Allergies: 20:59 No Known Allergies; vc - Home Meds: 20:59 levothyroxine oral [Active]; vc - PMHx: 20:59 Heart Murmur; Hypothyroidism; Myocardial infarction; Stefanie disease; vc - PSHx: 20:59 None; vc - Immunization history:: Adult Immunizations up to date. - Social history:: Smoking status: Patient denies any tobacco usage or history of. Screenin:40 Abuse screen: Denies threats or abuse. Nutritional screening: No deficits noted. jb4 Tuberculosis screening: No symptoms or risk factors identified. Fall Risk None identified. Assessment: 21:40 General: Appears in no apparent distress. uncomfortable, Behavior is calm, cooperative, jb4 appropriate for age. Pain: Complains of pain in right eye Pain does not radiate. Pain currently is 7 out of 10 on a pain scale. Quality of pain is described as throbbing. Neuro: Level of Consciousness is awake, alert, obeys commands, Oriented to person, place, time, situation. Cardiovascular: Patient's skin is warm and dry. Respiratory: Airway is patent Respiratory effort is even, unlabored, Respiratory pattern is regular, symmetrical. GI: No signs and/or symptoms were reported involving the gastrointestinal system. : No signs and/or symptoms were reported regarding the genitourinary system. EENT: No signs and/or symptoms were reported regarding the EENT system. Derm: Skin is intact, Skin is pink, warm \\T\\ dry. Musculoskeletal: Circulation, motion, and sensation intact. Range of motion: intact in all extremities. 23:00 Reassessment: Patient appears in no apparent distress at this time. Patient and/or jb4 family updated on plan of care and expected duration. Pain level reassessed. Patient is alert, oriented x 3, equal unlabored respirations, skin warm/dry/pink. Patient states feeling better. 04/15 00:00 Reassessment: Patient appears in no apparent distress at this time. Patient and/or jb4 family updated on plan of care and expected duration. Pain level reassessed. Patient is alert, oriented x 3, equal unlabored respirations, skin warm/dry/pink. Patient denies pain at this time. 00:36 Reassessment: Patient appears in no apparent distress at this time. Patient and/or jb4 family updated on plan of care and expected duration. Pain level reassessed. Patient is alert, oriented x 3, equal unlabored respirations, skin warm/dry/pink. PT verbalized understanding of d/c and follow up instructions. Denies questions or concerns. Ambulated out of ED with steady gait. Vital Signs: 04/14 20:54 BP 152 / 92; Pulse 104; Resp 25; Temp 98.6; Pulse Ox 97% ; Weight 136.08 kg; Height 5 vc ft. 10 in. (177.80 cm); Pain 7/10; 23:00 BP 141 / 87; Pulse 87; Resp 16; Pulse Ox 98% on R/A; jb4 04/15 00:00 BP 142 / 89; Pulse 78; Resp 16; Pulse Ox 97% ; Pain 0/10; jb4 04/14 20:54 Body Mass Index 43.05 (136.08 kg, 177.80 cm) vc [place] Coma Score: 00:19 Eye Response: spontaneous(4). Verbal Response: oriented(5). Motor Response: obeys mh7 commands(6). Total: 15. ED Course: 04/14 20:02 Patient arrived in ED. bp1 20:57 Triage completed. vc 21:30 Manuel Gamez MD is Attending Physician. 7 21:40 Bishnu Combs, RN is Primary Nurse. jb4 21:40 Patient has correct armband on for positive identification. Bed in low position. Call jb4 light in reach. Side rails up X 1. Pulse ox on. NIBP on. 04/15 00:21 Bradley Moralez DDS is Referral Physician. mh7 00:21 Tc Urena MD is Referral Physician. 7 00:38 No provider procedures requiring assistance completed. IV discontinued, intact, jb4 bleeding controlled, No redness/swelling at site. Pressure dressing applied. Administered Medications: 04/14 22:30 Drug: NS 0.9% 1000 ml Route: IV; Rate: 1000 ml; Site: left antecubital; jb4 23:30 Follow up: Response: No adverse reaction; IV Status: Completed infusion jb4 :30 Drug: Benadryl 50 mg Route: IVP; Site: left antecubital; jb4 23:00 Follow up: Response: No adverse reaction; Marked relief of symptoms jb4 22:30 Drug: TORadol 30 mg Route: IVP; Site: left antecubital; jb4 04/15 00:40 Follow up: Response: No adverse reaction; Marked relief of symptoms; Pain is decreased jb4 04/14 23:07 Not Given (Medication not held in hospital.): Compazine 10 mg IVP once jb4 Outcome: 04/15 00:22 Discharge ordered by . [facility] 00:38 Discharged to home ambulatory, with family. jb4 00:38 Condition: stable 00:38 Discharge instructions given to patient, Instructed on discharge instructions, follow up and referral plans. medication usage, Demonstrated understanding of instructions, follow-up care, medications, Prescriptions given X 3. 00:39 Patient left the ED. jb4 Signatures: Bishnu Combs RN RN [facility] Veronica Glod RN RN [facility] Manuel Gamez MD MD [facility]
[2020-04-18 09:57] VITALS: TEMP 98.6
[2020-04-18 09:59] VITALS: BP 142/89; O2SAT 97
== END 2020-04-15 00:39 | disposition home or self-care (01) ==
LOC: ER 20:00
DX: K08.89 Other specified disorders of teeth and supporting structures (principal)
CPT/HCPCS: 96361; 96374; 96375; 99283; J1200; J7030

== ENCOUNTER 2020-05-09 01:35 | Emergency (ER) | payer SELFPAY ==
--- NOTE | 2020-05-09 03:17 | ER ---
Nurse's Notes [facility] Name: Gamal Hassan Age: 25 yrs Sex: Male : 1995 Arrival Date: 05/09/2020 Time: 01:36 Bed 5 Private MD: Diagnosis: Dental caries;Dental caries, unspecified Presentation: 05/09 03:06 Chief complaint: Patient states: he is having "horrible tooth pain" radiating all bb around the right side of his head thinks it may be aggravated by his Stefanie's disease the pain is so bad he can't sleep. Coronavirus screen: At this time, the client does not indicate any symptoms associated with coronavirus-19. Ebola Screen: No symptoms or risks identified at this time. Initial Sepsis Screen: Does the patient meet any 2 criteria? No. Patient's initial sepsis screen is negative. Does the patient have a suspected source of infection? No. Patient's initial sepsis screen is negative. Risk Assessment: Do you want to hurt yourself or someone else? Patient reports no desire to harm self or others. Onset of symptoms was May 06, 2020. 03:06 Method Of Arrival: Ambulatory bb 03:06 Acuity: VIKY 4 bb Triage Assessment: 03:08 Headache History: The patient has had previous headaches. General: Appears in no bb apparent distress. Behavior is calm, cooperative. Pain: Complains of pain in upper and lower right jaw and right side of head Pain currently is 8 out of 10 on a pain scale. Pain began 2-3 days ago. Also complains of sleeplessness. EENT: Reports pain in upper and lower right jaw. Neuro: Level of Consciousness is awake, alert, obeys commands, Oriented to person, place, time, situation. Cardiovascular: No deficits noted. Respiratory: Respiratory effort is even, unlabored, Respiratory pattern is regular. GI: No deficits noted. No signs and/or symptoms were reported involving the gastrointestinal system. Derm: Skin is pink, warm \\T\\ dry. Musculoskeletal: Circulation, motion, and sensation intact. Historical: - Allergies: 03:08 No Known Allergies; bb - Home Meds: 03:08 None [Active]; bb - PMHx: 03:08 Stefanie disease; Heart Murmur; Hypothyroidism; Myocardial infarction; bb - PSHx: 03:08 heart cath; bb - Immunization history:: Adult Immunizations up to date. - Social history:: Smoking status: Patient denies any tobacco usage or history of. Patient uses alcohol, occasionally. Patient/guardian denies using street drugs, but used to use street drugs. Screenin:11 Abuse screen: Denies threats or abuse. Nutritional screening: No deficits noted. bb Tuberculosis screening: No symptoms or risk factors identified. Fall Risk None identified. Assessment: 03:11 Reassessment: No changes from previously documented assessment. see triage assessment. bb Pain: Complains of pain in right lower and upper jaw and right side of head. Vital Signs: 03:06 BP 137 / 84; Pulse 94; Resp 16 S; Temp 98.4(TE); Pulse Ox 97% on R/A; Weight 140.61 kg bb (R); Height 5 ft. 10 in. (177.80 cm) (R); Pain 8/10; 03:06 Body Mass Index 44.48 (140.61 kg, 177.80 cm) bb Christin Coma Score: 03:14 Eye Response: spontaneous(4). Verbal Response: oriented(5). Motor Response: obeys sharlene commands(6). Total: 15. ED Course: 01:36 Patient arrived in ED. bp1 01:55 Carter Castelan MD is Attending Physician. sharlene 03:08 Triage completed. bb 03:08 Arm band placed on Patient placed in an exam room, on a stretcher, on pulse oximetry. bb 03:11 Patient has correct armband on for positive identification. Bed in low position. Call bb light in reach. Side rails up X 1. Pulse ox on. NIBP on. 03:11 No provider procedures requiring assistance completed. bb 03:14 Phillip James RN is Primary Nurse. rv 03:16 Deny Valencia DDS is Referral Physician. sharlene 03:24 Patient did not have IV access during this emergency room visit. rv Administered Medications: 03:14 Drug: Amoxicillin 500 mg Route: PO; bb 03:24 Follow up: Response: Medication administered at discharge. rv 03:15 Drug: Motrin 800 mg Route: PO; bb 03:24 Follow up: Response: Medication administered at discharge. rv Outcome: 03:17 Discharge ordered by . sharlene 03:24 Discharged to home ambulatory. rv 03:24 Condition: good 03:24 Discharge instructions given to patient, Instructed on discharge instructions, follow up and referral plans. medication usage, Demonstrated understanding of instructions, follow-up care, medications, Prescriptions given X 2. 03:28 Patient left the ED. sg Signatures: Chon Aquino RN Carter Villalobos MD MD cha Ballard, Brenda, RN RN bb Vicente, Ronaldo, RN RN rv [place], Brittany bp1
--- NOTE | 2020-05-09 03:17 | EDPHYS ---
Physician Documentation [facility] Name: Gamal Hassan Age: 25 yrs Sex: Male : 1995 Arrival Date: 05/09/2020 Time: 01:36 Bed 5 Private MD: LÁZARO Physician Carter Castelan HPI: 05/09 03:10 This 25 yrs old Male presents to ER via Ambulatory with complaints of Teeth sharlene Pain, Headache. 03:10 The patient complains of pain to the right cheek and right jaw. The patient describes sharlene the headache as aching. Onset: The symptoms/episode began/occurred 2 day(s) ago. Associated signs and symptoms: The patient has no apparent associated signs or symptoms. Severity of symptoms: At its worst the pain was mild. Headache History: The patient has had previous headaches and this one is similar to previous episodes. The symptoms are alleviated by remaining still, the symptoms are aggravated by movement. Historical: - Allergies: 03:08 No Known Allergies; bb - Home Meds: 03:08 None [Active]; bb - PMHx: 03:08 Stefanie disease; Heart Murmur; Hypothyroidism; Myocardial infarction; bb - PSHx: 03:08 heart cath; bb - Immunization history:: Adult Immunizations up to date. - Social history:: Smoking status: Patient denies any tobacco usage or history of. Patient uses alcohol, occasionally. Patient/guardian denies using street drugs, but used to use street drugs. ROS: 03:11 Constitutional: Negative for fever, chills, and weight loss, Eyes: Negative for injury, sharlene pain, redness, and discharge, ENT: Negative for injury, pain, and discharge, Neck: Negative for injury, pain, and swelling, Cardiovascular: Negative for chest pain, palpitations, and edema, Respiratory: Negative for shortness of breath, cough, wheezing, and pleuritic chest pain, Abdomen/GI: Negative for abdominal pain, nausea, vomiting, diarrhea, and constipation, Back: Negative for injury and pain, : Negative for injury, bleeding, discharge, and swelling, MS/Extremity: Negative for injury and deformity, Skin: Negative for injury, rash, and discoloration, Neuro: Negative for headache, weakness, numbness, tingling, and seizure. 03:18 Cardiovascular: Negative for chest pain, edema, orthopnea, palpitations, paroxysmal sharlene nocturnal dyspnea. 03:18 Respiratory: Negative for cough, dyspnea on exertion, orthopnea, pleurisy, shortness of breath, wheezing. Exam: 03:11 Constitutional: This is a well developed, well nourished patient who is awake, alert, sharlene and in no acute distress. Head/Face: Normocephalic, atraumatic. Eyes: Pupils equal round and reactive to light, extra-ocular motions intact. Lids and lashes normal. Conjunctiva and sclera are non-icteric and not injected. Cornea within normal limits. Periorbital areas with no swelling, redness, or edema. Neck: Trachea midline, no thyromegaly or masses palpated, and no cervical lymphadenopathy. Supple, full range of motion without nuchal rigidity, or vertebral point tenderness. No Meningismus. Chest/axilla: Normal chest wall appearance and motion. Nontender with no deformity. No lesions are appreciated. Cardiovascular: Regular rate and rhythm with a normal S1 and S2. No gallops, murmurs, or rubs. Normal PMI, no JVD. No pulse deficits. Respiratory: Lungs have equal breath sounds bilaterally, clear to auscultation and percussion. No rales, rhonchi or wheezes noted. No increased work of breathing, no retractions or nasal flaring. Abdomen/GI: Soft, non-tender, with normal bowel sounds. No distension or tympany. No guarding or rebound. No evidence of tenderness throughout. Back: No spinal tenderness. No costovertebral tenderness. Full range of motion. Male : Normal genitalia with no discharge or lesions. Skin: Warm, dry with normal turgor. Normal color with no rashes, no lesions, and no evidence of cellulitis. MS/ Extremity: Pulses equal, no cyanosis. Neurovascular intact. Full, normal range of motion. Neuro: Awake and alert, GCS 15, oriented to person, place, time, and situation. Cranial nerves II-XII grossly intact. Motor strength 5/5 in all extremities. Sensory grossly intact. Cerebellar exam normal. Normal gait. Psych: Awake, alert, with orientation to person, place and time. Behavior, mood, and affect are within normal limits. 03:11 ENT: Mouth: Lips: normal, moist, Oral mucosa: normal, pink and intact, Gums: normal with healthy appearance, Tongue: is normal, abscess, is not appreciated, drooling, is not appreciated. 03:19 Neck: External neck: is normal, C-spine: appears grossly normal, no acute changes, sharlene Thyroid: appears normal, no acute changes, Trachea: is midline with no obvious abnormalities, no acute changes, ROM/movement: is normal, no acute changes, pain, is not appreciated, limited range of motion, is not appreciated, Lymph nodes: no appreciated lymphadenopathy. Vital Signs: 03:06 BP 137 / 84; Pulse 94; Resp 16 S; Temp 98.4(TE); Pulse Ox 97% on R/A; Weight 140.61 kg bb (R); Height 5 ft. 10 in. (177.80 cm) (R); Pain 8/10; 03:06 Body Mass Index 44.48 (140.61 kg, 177.80 cm) bb Christin Coma Score: 03:14 Eye Response: spontaneous(4). Verbal Response: oriented(5). Motor Response: obeys [facility] commands(6). Total: 15. MDM: 02:59 Patient medically screened. [facility] 03:14 Differential diagnosis: gingivitis, dental abscess, gingivostomatitis, migraine, sharlene sinusitis. Data reviewed: vital signs, nurses notes. Data interpreted: court monitor: rate is 94 beats/min, rhythm is regular, Pulse oximetry: on room air is 97 %. Counseling: I had a detailed discussion with the patient and/or guardian regarding: the historical points, exam findings, and any diagnostic results supporting the discharge/admit diagnosis, the need for outpatient follow up, for definitive care, a dentist. Administered Medications: 03:14 Drug: Amoxicillin 500 mg Route: PO; bb 03:24 Follow up: Response: Medication administered at discharge. rv 03:15 Drug: Motrin 800 mg Route: PO; bb 03:24 Follow up: Response: Medication administered at discharge. rv Disposition: 05/09/20 03:17 Discharged to Home. Impression: Dental caries, Dental caries, unspecified. - Condition is Stable. - Discharge Instructions: Dental Caries, Adult, Dental Pain, Dental Pain, [id number]. - Prescriptions for Amoxicillin 500 mg Oral Capsule - take 1 capsule by ORAL route every 8 hours for 10 days; 30 tablet. Tylenol- Codeine #3 300-30 mg Oral Tablet - take 2 tablets by ORAL route every 6 hours As needed; 24 tablet. - Medication Reconciliation Form, Thank You Letter, Antibiotic Education, Prescription Opioid Use form. - Follow up: Private Physician; When: 2 - 3 days; Reason: Recheck today's complaints, Continuance of care, Re-evaluation by your physician. Follow up: Deny Valencia DDS; When: 2 - 3 days; Reason: Recheck today's complaints, Re-evaluation by your physician. - Problem is new. - Symptoms have improved. Signatures: Chon Aquino RN RN Carter Dorado MD MD cha Ballard, Brenda, RN RN bb Phillip James RN rv Corrections: (The following items were deleted from the chart) 03:28 03:17 05/09/2020 03:17 Discharged to Home. Impression: Dental caries; Dental caries, sg unspecified. Condition is Stable. Forms are Medication Reconciliation Form, Thank You Letter, Antibiotic Education, Prescription Opioid Use. Follow up: Private Physician; When: 2 - 3 days; Reason: Recheck today's complaints, Continuance of care, Re-evaluation by your physician. Follow up: Deny Valencia; When: 2 - 3 days; Reason: Recheck today's complaints, Re-evaluation by your physician. Problem is new. Symptoms have improved. sharlene
[2020-05-09] MEDS ORDERED: IBUPROFEN 400 MG TAB ONE (03:26)
[2020-05-09] MEDS ORDERED: AMOXICILLIN TRIHYDR 250 MG CAP ONE (03:26)
[2020-05-09 03:34] VITALS: BP 137/84; TEMP 98.4; O2SAT 97
== END 2020-05-09 03:28 | disposition home or self-care (01) ==
LOC: ER 01:35
DX: K02.9 Dental caries, unspecified (principal); I25.2 Old myocardial infarction
CPT/HCPCS: 99283

== ENCOUNTER 2020-05-31 03:42 | Emergency (ER) | payer SELFPAY ==
--- NOTE | 2020-05-31 04:37 | ER ---
Nurse's Notes [facility] Name: Gamal Hassan Age: 25 yrs Sex: Male : 1995 Arrival Date: 05/31/2020 Time: 03:45 Bed 4 Private MD: Diagnosis: Dental caries Presentation: 05/31 03:52 Acuity: VIKY 4 sg 03:52 Chief complaint: Patient states: Right sided jaw pain, reports pain radiates up into sg the skull on the right side, unable to sleep due to the pain, reports is unable to be seen by dentist/oral maxillo for treatment due to financial hardship, no other symptoms reported at this time. Coronavirus screen: Client denies travel out of the [place] in the last 14 days. At this time, the client does not indicate any symptoms associated with coronavirus-19. Ebola Screen: Patient negative for fever greater than or equal to 101.5 degrees Fahrenheit, and additional compatible Ebola Virus Disease symptoms Patient denies exposure to infectious person. Patient denies travel to an Ebola-affected area in the 21 days before illness onset. No symptoms or risks identified at this time. Initial Sepsis Screen: Does the patient meet any 2 criteria? No. Patient's initial sepsis screen is negative. Does the patient have a suspected source of infection? No. Patient's initial sepsis screen is negative. Risk Assessment: Do you want to hurt yourself or someone else? Patient reports no desire to harm self or others. Onset of symptoms was May 31, 2020. Care prior to arrival: None. Transition of care: patient was not received from another setting of care. 03:52 Method Of Arrival: Ambulatory sg Triage Assessment: 04:41 General: Behavior is calm, cooperative. rv 04:42 EENT: Reports pain. rv Historical: - Allergies: 03:51 No Known Allergies; sg - PMHx: 03:51 Stefanie disease; Heart Murmur; Hypothyroidism; Myocardial infarction; sg - PSHx: 03:51 heart cath; sg - Immunization history:: Adult Immunizations up to date. - Social history:: Smoking status: Patient reports the use of cigarette tobacco products. Screenin:41 Abuse screen: Denies threats or abuse. Denies injuries from another. Nutritional rv screening: No deficits noted. Tuberculosis screening: No symptoms or risk factors identified. Fall Risk None identified. Assessment: 04:08 Reassessment: Patient appears in no apparent distress at this time. pt provided with community resources for follow up. 04:40 General: Appears in no apparent distress. Pain: Complains of pain in upper right third rv molar. Neuro: Level of Consciousness is awake, alert, obeys commands, Oriented to person, place, time, situation. Cardiovascular: Patient's skin is warm and dry. Respiratory: Airway is patent. EENT: Dental caries noted in upper right third molar. Vital Signs: 04:11 BP 137 / 89; Pulse 80; Resp 16; Temp 97.7; Pulse Ox 98% on R/A; Pain 10/10; sg ED Course: 03:45 Patient arrived in ED. cl3 03:51 Arm band placed on. sg 03:52 Triage completed. sg 03:58 Manuel Gamez MD is Attending Physician. 7 04:36 Bradley Moralez DDS is Referral Physician. [facility] 04:37 Phillip James RN is Primary Nurse. rv 04:41 Patient has correct armband on for positive identification. Pulse ox on. NIBP on. rv 04:41 No provider procedures requiring assistance completed. Patient did not have IV access rv during this emergency room visit. Administered Medications: No medications were administered Outcome: 04:37 Discharge ordered by . mh7 04:41 Discharged to home ambulatory. rv 04:41 Condition: good 04:41 Discharge instructions given to patient, Instructed on discharge instructions, follow up and referral plans. medication usage, Demonstrated understanding of instructions, follow-up care, medications, Prescriptions given X 1. 04:42 Patient left the ED. rv Signatures: Chon Aquino, RN RN Phillip James RN RN rv Lewis, Charde 3 Manuel Gamez MD MD [facility]
--- NOTE | 2020-05-31 04:37 | EDPHYS ---
Physician Documentation [facility] Name: Gamal Hassan Age: 25 yrs Sex: Male : 1995 Arrival Date: 05/31/2020 Time: 03:45 Bed 4 Private MD: ED Physician Manuel Gamez HPI: 05/31 04:30 This 25 yrs old Male presents to ER via Ambulatory with complaints of mh7 Toothache. 04:30 The patient presents with pain. The problem is located in the right upper wisdom tooth. mh7 04:31 Onset: The symptoms/episode began/occurred 3 day(s) ago. Duration: The symptoms are mh7 intermittent, with no pattern. Modifying factors: The symptoms are alleviated by nothing, the symptoms are aggravated by chewing, cold fluids, food. Associated signs and symptoms: Pertinent negatives: anorexia, chills, dysphagia, fever, inability to eat, nausea, redness in area, swelling, vomiting. Severity of symptoms: At their worst the symptoms were moderate, last night, in the emergency department the symptoms have improved, moderately. The patient has experienced similar episodes in the past, several times. The patient has been recently seen at the [facility], a couple of weeks ago, saw dentist last week and was started on Amoxicillin. 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 - Social history:: Smoking status: Patient reports the use of cigarette tobacco products. ROS: 04:31 Constitutional: Negative for fever, chills, and weight loss, Eyes: Negative for injury, mh7 pain, redness, and discharge, Neck: Negative for injury, pain, and swelling, Cardiovascular: Negative for chest pain, palpitations, and edema, Respiratory: Negative for shortness of breath, cough, wheezing, and pleuritic chest pain, Abdomen/GI: Negative for abdominal pain, nausea, vomiting, diarrhea, and constipation, Back: Negative for injury and pain, : Negative for injury, bleeding, discharge, and swelling, MS/Extremity: Negative for injury and deformity, Skin: Negative for injury, rash, and discoloration, Neuro: Negative for headache, weakness, numbness, tingling, and seizure, Psych: Negative for depression, anxiety, suicide ideation, homicidal ideation, and hallucinations, Allergy/Immunology: Negative for hives, rash, and allergies, Endocrine: Negative for neck swelling, polydipsia, polyuria, polyphagia, and marked weight changes, Hematologic/Lymphatic: Negative for swollen nodes, abnormal bleeding, and unusual bruising. Exam: 04:31 Constitutional: This is a well developed, well nourished patient who is awake, alert, mh7 and in no acute distress. Head/Face: Normocephalic, atraumatic. Eyes: Pupils equal round and reactive to light, extra-ocular motions intact. Lids and lashes normal. Conjunctiva and sclera are non-icteric and not injected. Cornea within normal limits. Periorbital areas with no swelling, redness, or edema. 04:31 Neck: Trachea midline, no thyromegaly or masses palpated, and no cervical lymphadenopathy. Supple, full range of motion without nuchal rigidity, or vertebral point tenderness. No Meningismus. Chest/axilla: Normal chest wall appearance and motion. Nontender with no deformity. No lesions are appreciated. Cardiovascular: Regular rate and rhythm with a normal S1 and S2. No gallops, murmurs, or rubs. Normal PMI, no JVD. No pulse deficits. Respiratory: Lungs have equal breath sounds bilaterally, clear to auscultation and percussion. No rales, rhonchi or wheezes noted. No increased work of breathing, no retractions or nasal flaring. Abdomen/GI: Soft, non-tender, with normal bowel sounds. No distension or tympany. No guarding or rebound. No evidence of tenderness throughout. Back: No spinal tenderness. No costovertebral tenderness. Full range of motion. Skin: Warm, dry with normal turgor. Normal color with no rashes, no lesions, and no evidence of cellulitis. MS/ Extremity: Pulses equal, no cyanosis. Neurovascular intact. Full, normal range of motion. Neuro: Awake and alert, GCS 15, oriented to person, place, time, and situation. Cranial nerves II-XII grossly intact. Motor strength 5/5 in all extremities. Sensory grossly intact. Cerebellar exam normal. Normal gait. Psych: Awake, alert, with orientation to person, place and time. Behavior, mood, and affect are within normal limits. 04:31 ENT: External ear(s): are unremarkable, Nose: is normal, Mouth: Lips: normal, Oral mucosa: normal, Gums: swollen, on the upper right third molar, Tongue: is normal, abscess, is not appreciated, drooling, is not appreciated, Posterior pharynx: is normal, airway is patent, Dental exam: dental caries, that is mild, specifically in the upper right third molar (#1), gum swelling, that is mild, specifically in the upper right third molar (#1), malocclusion, is not appreciated, missing teeth, not appreciated, pain, that is moderate, specifically in the upper right third molar (#1), Voice: is normal. Vital Signs: 04:11 BP 137 / 89; Pulse 80; Resp 16; Temp 97.7; Pulse Ox 98% on R/A; Pain 10/10; sg MDM: 04:23 Patient medically screened. [facility] 04:31 Differential diagnosis: dental caries, gingivitis, dental abscess, pericoronitis, [facility] aphthous ulcers, acute necrotizing ulcerative gingivitis, gingivostomatitis. Data reviewed: vital signs, nurses notes, old medical records. Data interpreted: Pulse oximetry: on room air is 98 %. Interpretation: normal. Counseling: I had a detailed discussion with the patient and/or guardian regarding: the historical points, exam findings, and any diagnostic results supporting the discharge/admit diagnosis, the presence of at least one elevated blood pressure reading (>120/80) during this emergency department visit, the need for outpatient follow up, a dentist, to return to the emergency department if symptoms worsen or persist or if there are any questions or concerns that arise at home. Administered Medications: No medications were administered Disposition: 05/31/20 04:37 Discharged to Home. Impression: Dental caries. - Condition is Stable. - Discharge Instructions: Dental Pain, [id number], Dental Caries, [id number]. - Prescriptions for Tramadol 50 mg Oral Tablet - take 1 tablet by ORAL route every 8 hours as needed; 12 tablet. - Medication Reconciliation Form, Thank You Letter, Antibiotic Education, Prescription Opioid Use form. - Follow up: Bradley Moralez DDS; When: 1 - 2 days; Reason: Worsening of condition, Recheck today's complaints. - Problem is an ongoing problem. - Symptoms have improved. Signatures: Chon Aquino RN RN sg Phillip James RN RN Manuel Reese MD MD mh7 Corrections: (The following items were deleted from the chart) 04:42 04:37 05/31/2020 04:37 Discharged to Home. Impression: Dental caries. Condition is rv Stable. Forms are Medication Reconciliation Form, Thank You Letter, Antibiotic Education, Prescription Opioid Use. Follow up: Bradley Moralez; When: 1 - 2 days; Reason: Worsening of condition, Recheck today's complaints. Problem is an ongoing problem. Symptoms have improved. mh7
[2020-05-31 04:47] VITALS: BP 137/89; TEMP 97.7; O2SAT 98
== END 2020-05-31 04:42 | disposition home or self-care (01) ==
LOC: ER 03:42
DX: K02.9 Dental caries, unspecified (principal); F17.210 Nicotine dependence, cigarettes, uncomplicated; I25.2 Old myocardial infarction
CPT/HCPCS: 99283

== ENCOUNTER 2020-12-27 08:15 | Inpatient (IN) | payer SELFPAY ==
[2020-12-27] MEDS ORDERED: ASPIRIN 81 MG CHEWABLE TABLET ONE (09:07)
[2020-12-27] MEDS ORDERED: NA CHLORIDE 0.9% 1,000 ML ONE (09:07)
[2020-12-27 09:13] LABS: Absolute Lymphocytes (CBC) 1.9 K/uL (0.7-4.9); Basophils % 1.2 % (0-1.3); Hematocrit 43.7 % (39.6-49.0); Lymphocytes % 29.6 % (15.3-44.8); MPV 9.6 fL (7.6-11.3); RBC Red Blood Cell Count 5.07 M/uL (4.33-5.43)
--- NOTE | 2020-12-27 09:31 | RAD REPORT ---
EXAM DESCRIPTION: RAD - Chest Single View - 12/27/2020 8:55 am CLINICAL HISTORY: CHEST PAIN COMPARISON: October 2018 TECHNIQUE: AP portable chest image was obtained 12/27/2020 8:55 am . FINDINGS: Lungs are clear. Heart size is prominent, accentuated by body habitus, portable technique and lordotic positioning. No vascular engorgement. No measurable pleural effusion and no pneumothorax . No acute bony abnormality seen. No acute aortic findings suspected. IMPRESSION: No acute lung parenchymal process. Mild cardiomegaly is suspected but no acute failure or volume overload. A large silhouette may be an artifact of exam positioning.
[2020-12-27 09:34] LABS: Albumin 4.3 g/dL (3.4-5.0); Bilirubin Direct 0.2 mg/dL (0-0.2); Bilirubin Total 0.5 mg/dL (0.2-1.0); Magnesium 2.4 mg/dL (1.8-2.4); Potassium 3.9 mmol/L (3.5-5.1); Protein, Total 8.8 g/dL (6.4-8.2)
[2020-12-27 09:35] LABS: Protime INR 1.1
[2020-12-27 09:36] LABS: Troponin (Emerg Dept Use Only) 0.94 ng/mL (0.0-0.045)
[2020-12-27 09:39] LABS: Thyroid Stimulating Hormone 31.2 uIU/mL (0.360-3.740)
[2020-12-27 09:49] LABS: CKMB Creatine Kinase MB 4.8 ng/mL (0.3-3.6)
[2020-12-27 10:00] LABS: SARS-COV-2 RT PCR NEGATIVE (NEGATIVE)
--- NOTE | 2020-12-27 10:15 | EDPHYS ---
Physician Documentation [facility] Name: Gamal Hassan Age: 25 yrs Sex: Male : 1995 Arrival Date: 12/27/2020 Time: 08:17 Bed 5 Private MD: LÁZARO Physician Carter Castelan HPI: 12/27 09:06 This 25 yrs old Male presents to ER via Ambulatory with complaints of Chest sharlene Pain, Arm Pain. 09:06 The patient or guardian reports chest pain that is located primarily in the substernal sharlene area, anterior chest wall, bilaterally. The pain radiates to both arms. Associated signs and symptoms: The patient has no apparent associated signs or symptoms. The chest pain is described as a heaviness. Duration: The patient or guardian reports multiple episodes, that have now resolved. Modifying factors: The symptoms are alleviated by nothing. the symptoms are aggravated by nothing. breathing. Severity of pain: At its worst the pain was mild in the emergency department the pain is unchanged. The patient has experienced similar episodes in the past, several times. 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 Flu vaccine is not up to date. - Social history:: Smoking status: Patient denies any tobacco usage or history of. Patient uses street drugs, marijuana. - Family history:: not pertinent. ROS: 09:07 Constitutional: Negative for fever, chills, and weight loss, Eyes: Negative for injury, sharlene pain, redness, and discharge, ENT: Negative for injury, pain, and discharge, Neck: Negative for injury, pain, and swelling, Abdomen/GI: Negative for abdominal pain, nausea, vomiting, diarrhea, and constipation, Back: Negative for injury and pain, : Negative for injury, bleeding, discharge, and swelling, MS/Extremity: Negative for injury and deformity, Skin: Negative for injury, rash, and discoloration, Neuro: Negative for headache, weakness, numbness, tingling, and seizure, Psych: Negative for depression, anxiety, suicide ideation, homicidal ideation, and hallucinations, Allergy/Immunology: Negative for hives, rash, and allergies, Endocrine: Negative for neck swelling, polydipsia, polyuria, polyphagia, and marked weight changes, Hematologic/Lymphatic: Negative for swollen nodes, abnormal bleeding, and unusual bruising. 09:07 Cardiovascular: Positive for chest pain. 09: Respiratory: Positive for shortness of breath. 09:07 MS/extremity: Negative for acute changes. Exam: :07 Constitutional: This is a well developed, well nourished patient who is awake, alert, sharlene and in no acute distress. Head/Face: Normocephalic, atraumatic. Eyes: Pupils equal round and reactive to light, extra-ocular motions intact. Lids and lashes normal. Conjunctiva and sclera are non-icteric and not injected. Cornea within normal limits. Periorbital areas with no swelling, redness, or edema. ENT: Nares patent. No nasal discharge, no septal abnormalities noted. Tympanic membranes are normal and external auditory canals are clear. Oropharynx with no redness, swelling, or masses, exudates, or evidence of obstruction, uvula midline. Mucous membranes moist. Neck: Trachea midline, no thyromegaly or masses palpated, and no cervical lymphadenopathy. Supple, full range of motion without nuchal rigidity, or vertebral point tenderness. No Meningismus. Chest/axilla: Normal chest wall appearance and motion. Nontender with no deformity. No lesions are appreciated. Cardiovascular: Regular rate and rhythm with a normal S1 and S2. No gallops, murmurs, or rubs. Normal PMI, no JVD. No pulse deficits. Respiratory: Lungs have equal breath sounds bilaterally, clear to auscultation and percussion. No rales, rhonchi or wheezes noted. No increased work of breathing, no retractions or nasal flaring. Abdomen/GI: Soft, non-tender, with normal bowel sounds. No distension or tympany. No guarding or rebound. No evidence of tenderness throughout. Back: No spinal tenderness. No costovertebral tenderness. Full range of motion. Male : Normal genitalia with no discharge or lesions. Skin: Warm, dry with normal turgor. Normal color with no rashes, no lesions, and no evidence of cellulitis. MS/ Extremity: Pulses equal, no cyanosis. Neurovascular intact. Full, normal range of motion. Neuro: Awake and alert, GCS 15, oriented to person, place, time, and situation. Cranial nerves II-XII grossly intact. Motor strength 5/5 in all extremities. Sensory grossly intact. Cerebellar exam normal. Normal gait. Psych: Awake, alert, with orientation to person, place and time. Behavior, mood, and affect are within normal limits. 09:07 Musculoskeletal/extremity: DVT Exam: No signs of deep vein thrombosis. no pain, no swelling, no tenderness, negative Homans' sign noted on exam, no appreciated bluish discoloration, no erythema, no increased warmth. 09:11 ECG was reviewed by the Attending Physician. [facility] Vital Signs: 08:24 Weight 136.08 kg; Height 5 ft. 10 in. (177.80 cm); Pain 7/10; sv 08:33 BP 130 / 91; Pulse 98; Resp 16; Temp 98.6(O); Pulse Ox 98% on R/A; Pain 7/10; em 10:00 BP 125 / 81; Pulse 92; Resp 16; Pulse Ox 98% on R/A; em 10:51 BP 116 / 69; Pulse 86; Resp 18; Pulse Ox 97% on R/A; Pain 0/10; em 08:24 Body Mass Index 43.05 (136.08 kg, 177.80 cm) sv MDM: 08:25 Patient medically screened. [facility] 09:08 Differential diagnosis: abnormal EKG, acute pericarditis, coronary artery disease chest sharlene wall pain, cholecystitis, Cholelithiasis gastroesophageal reflux disease (GERD), pancreatitis, peptic ulcer disease, pleurisy, pneumonia, pulmonary embolus, stable angina, unstable angina. HEART Score: History: Moderately Suspicious (1), ECG: Non specific repolarization disturbance / LBTB / PM (1), Age: < or = 45 years (0), Risk Factors: > or = 3 Risk factors for atherosclerotic disease (2), [Hypertension] [+ Family HX] [Obesity] Troponin: < or = 1 x Normal Limit (0). The patient's deep vein thrombosis risk score was calculated as follows: Total Score: 0. This patient was found to be at low risk for a deep vein thrombosis by using the Well's assessment criteria. The patient's pulmonary embolism risk score was calculated as follows: Total Score: 0-2 points. This patient was found to be at low risk for a pulmonary embolism by using the Well's assessment criteria. YANIRA Risk Score: 1 - Three or more CAD risk factors, [Family Hx], [HTN], [Elevated Cholesterol], TOTAL SCORE =. 09:10 Data reviewed: vital signs, nurses notes, lab test result(s), EKG, radiologic studies, sharlene CT scan, plain films. Data interpreted: ekg monitor: rate is 98 beats/min, rhythm is regular, Pulse oximetry: on room air is 98 %. Test interpretation: by ED physician or midlevel provider: ECG, plain radiologic studies. Counseling: I had a detailed discussion with the patient and/or guardian regarding: the historical points, exam findings, and any diagnostic results supporting the discharge/admit diagnosis, lab results, radiology results. 12/27 08:28 Order name: Basic Metabolic Panel [facility] 12/27 08:28 Order name: CBC with Diff [facility] 12/27 08:28 Order name: LFT's [facility] 12/27 08:28 Order name: Magnesium [facility] 12/27 08:28 Order name: NT PRO-BNP [facility] 12/27 08:28 Order name: PT-INR; Complete Time: 10:05 [facility] 12/27 08:28 Order name: Troponin (emerg Dept Use Only); Complete Time: 10:05 [facility] 12/27 08:28 Order name: Lipase; Complete Time: 10:05 [facility] 12/27 08:28 Order name: Blood Culture Adult (2) [facility] 12/27 08:29 Order name: Basic Metabolic Panel; Complete Time: 10:05 [facility] 12/27 08:29 Order name: CBC with Automated Diff; Complete Time: 10:05 [facility] 12/27 08:29 Order name: Liver (Hepatic) Function; Complete Time: 10:05 [facility] 12/27 08:28 Order name: XRAY Chest (1 view); Complete Time: 10:05 [facility] 12/27 08:28 Order name: CT Chest For PE Angio [facility] 12/27 08:29 Order name: Magnesium; Complete Time: 10:05 [facility] 12/27 08:29 Order name: NT PRO-BNP; Complete Time: 10:05 [facility] 12/27 08:29 Order name: UDS [facility] 12/27 08:33 Order name: TSH em 12/27 08:34 Order name: Thyroid Stimulating Hormone; Complete Time: 10:05 [facility] 12/27 09:37 Order name: Creatine Phosphokinase; Complete Time: 10:05 [facility] 12/27 09:37 Order name: CKMB Creatine Kinase MB; Complete Time: 10:05 [facility] 12/27 09:40 Order name: T4 Free; Complete Time: 10:05 [facility] 12/27 10:00 Order name: COVID-19/FLU A+B; Complete Time: 10:05 [facility] 12/27 08:28 Order name: EKG; Complete Time: 08:29 [facility] 12/27 08:28 Order name: Cardiac monitoring; Complete Time: 09:04 [facility] 12/27 08:28 Order name: EKG - Nurse/Tech; Complete Time: 09:04 [facility] 12/27 08:28 Order name: IV Saline Lock; Complete Time: 09:04 [facility] 12/27 08:28 Order name: Labs collected and sent; Complete Time: 09:04 [facility] 12/27 08:28 Order name: O2 Per Protocol; Complete Time: 09:03 [facility] 12/27 08:28 Order name: O2 Sat Monitoring; Complete Time: 09:04 [facility] 12/27 10:21 Order name: NPO; Complete Time: 10:25 [facility] EC:11 Rate is 98 beats/min. Rhythm is regular. QRS Brandt is Normal. GA interval is normal. QRS sharlene interval is normal. QT interval is normal. Q waves are Present in leads II, III, aVF. T waves are Normal. No ST changes noted. Clinical impression: Abnormal EKG without significant change and No evidence of ischemia. Interpreted by me. Reviewed by me. Administered Medications: 09:00 Drug: NS 0.9% 500 ml Route: IV; Rate: bolus; Site: right antecubital; em 10:53 Follow up: IV Status: Completed infusion; IV Intake: 500ml em 09:03 Drug: Aspirin Chewable Tablet 324 mg Route: PO; em 09:18 Follow up: Response: No adverse reaction em 10:00 Drug: NS 0.9% 1000 ml Route: IV; Rate: 125 ml/hr; Site: right antecubital; em 11:53 Follow up: IV Status: Infusion continued upon admission em 10:04 Drug: Lopressor (metoprolol TARTRATE) 50 mg Route: PO; em 10:53 Follow up: Response: No adverse reaction em 10:10 Drug: PlaVIX (clopidogrel) 300 mg Route: PO; em 10:52 Follow up: Response: No adverse reaction em 10:13 Drug: Heparin (NM Drip) 12 units/kg/hr - (HEParin 64807 units, D5W 500 ml) em {Co-Signature: kg (Celine Casey).} Route: IV; Rate: calculated rate; Site: right antecubital; 11:46 Follow up: Response: No adverse reaction; IV Status: Infusion continued upon admission em 10:18 Drug: Heparin (NM-Bolus No thrombolytic) - HEParin 60 units/kg {Co-Signature: kg em (Celine Casey).} Route: IVP; Site: right antecubital; 10:53 Follow up: Response: No adverse reaction em 10:26 Drug: Lipitor (atorvastatin) 20 mg Route: PO; em 10:52 Follow up: Response: No adverse reaction em 11:46 Not Given (Patient Refused): morphine 2 mg IVP once; (PAIN>8) RASS on ADMN: Combtv4, em Very Agttd3, Agttd2, Rstlss1, AlertClm0, Drwsy-1, LtSdtn-2, ModSdtn-3, DpSdtn-4, UnArsble-5 x2 11:46 Not Given (Patient Refused): Zofran (Ondansetron) 4 mg IVP once; over 2 minutes em Disposition: 12/27/20 10:15 Hospitalization ordered by Jovani Myles for Inpatient Admission. Preliminary diagnosis are Angina pectoris, Non-ST elevation (NSTEMI) myocardial infarction, Cardiomegaly. - Bed requested for Telemetry/MedSurg (Inpatient). - Status is Inpatient Admission. em - Condition is Fair. - Problem is new. - Symptoms have improved. Signatures: Dispatcher [employer] EDMS Astrid Duran RN RN sv Anderson, Corey, MD MD cha Munoz, Edgar, RN RN em Celine Jacinto kg Corrections: (The following items were deleted from the chart) 09:11 08:29 CORONAVIRUS+MR.LAB.BRZ ordered. EDMS EDMS 09:12 08:29 Influenza Screen (A \T\ B)+BA.LAB.BRZ ordered. EDMS EDMS 11:05 10:15 Hospitalization Ordered by Jovani Myles DO for Inpatient Admission. Preliminary sv diagnosis is Angina pectoris; Non-ST elevation (NSTEMI) myocardial infarction; Cardiomegaly. Bed requested for Telemetry/MedSurg (Inpatient). Status is Inpatient Admission. Condition is Fair. Problem is new. Symptoms have improved. sharlene 11:39 11:05 12/27/2020 10:15 Hospitalization Ordered by Jovani Myles DO for Inpatient em Admission. Preliminary diagnosis is Angina pectoris; Non-ST elevation (NSTEMI) myocardial infarction; Cardiomegaly. Bed requested for Telemetry/MedSurg (Inpatient). Status is Inpatient Admission. Condition is Fair. Problem is new. Symptoms have improved. sv 11:54 11:39 12/27/2020 10:15 Hospitalization Ordered by Jovani Myles DO for Inpatient em Admission. Preliminary diagnosis is Angina pectoris; Non-ST elevation (NSTEMI) myocardial infarction; Cardiomegaly. Bed requested for Telemetry/MedSurg (Inpatient). Status is Inpatient Admission. Condition is Fair. Problem is new. Symptoms have improved. em
--- NOTE | 2020-12-27 10:15 | ER ---
Nurse's Notes [facility] Name: Gamal Hassan Age: 25 yrs Sex: Male : 1995 Arrival Date: 12/27/2020 Time: 08:17 Bed 5 Private MD: Diagnosis: Angina pectoris;Non-ST elevation (NSTEMI) myocardial infarction;Cardiomegaly Presentation: 12/27 08:24 Chief complaint: Patient states: midsternal chest pain, BUE pain, fatigue, and fever sv only at night TMax 101 x 4 days-1 week. Denies n/v. Coronavirus screen: Client denies travel out of the [place] in the last 14 days. Client presents with at least one sign or symptom that may indicate coronavirus-19. Standard/surgical mask placed on the client. Provider contacted for isolation considerations. Ebola Screen: No symptoms or risks identified at this time. Risk Assessment: Do you want to hurt yourself or someone else? Patient reports no desire to harm self or others. Onset of symptoms was December 2020. 08:24 Method Of Arrival: Ambulatory sv 08:24 Acuity: VIKY 3 sv 08:30 Initial Sepsis Screen: Does the patient meet any 2 criteria? No. Patient's initial em sepsis screen is negative. Does the patient have a suspected source of infection? No. Patient's initial sepsis screen is negative. 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 Flu vaccine is not up to date. - Social history:: Smoking status: Patient denies any tobacco usage or history of. Patient uses street drugs, marijuana. - Family history:: not pertinent. Screenin:26 Abuse screen: Denies threats or abuse. Nutritional screening: No deficits noted. em Tuberculosis screening: No symptoms or risk factors identified. Fall Risk None identified. Assessment: 08:30 General: Appears in no apparent distress. comfortable, Behavior is calm, cooperative, em appropriate for age, Reports fever for > 3 days. Pain: Complains of pain in chest Pain does not radiate. Pain began 2-3 days ago. Neuro: Level of Consciousness is awake, alert, obeys commands, Oriented to person, place, time, situation. Cardiovascular: Denies diaphoresis, fatigue, nausea, Capillary refill < 3 seconds Patient's skin is warm and dry. Rhythm is sinus rhythm. Respiratory: Airway is patent Respiratory effort is even, unlabored, Respiratory pattern is regular, symmetrical. GI: Reports nausea. Derm: Skin is intact, is healthy with good turgor, Skin is pink, warm \T\ dry. Musculoskeletal: Capillary refill < 3 seconds, Range of motion: intact in all extremities. 09:47 Reassessment: pt wheeled to CT via wheelchair. em 10:26 Reassessment: hospitalist at bedside discussing POC with pt. em 10:51 Reassessment: Patient appears in no apparent distress at this time. Patient and/or em family updated on plan of care and expected duration. Pain level reassessed. Patient is alert, oriented x 3, equal unlabored respirations, skin warm/dry/pink. Patient denies pain at this time. Patient states feeling better. 11:10 Reassessment: Patient appears in no apparent distress at this time. Patient and/or em family updated on plan of care and expected duration. Pain level reassessed. Patient is alert, oriented x 3, equal unlabored respirations, skin warm/dry/pink. unable to give report at this time Patient denies pain at this time. Vital Signs: 08:24 Weight 136.08 kg; Height 5 ft. 10 in. (177.80 cm); Pain 7/10; sv 08:33 BP 130 / 91; Pulse 98; Resp 16; Temp 98.6(O); Pulse Ox 98% on R/A; Pain 7/10; em 10:00 BP 125 / 81; Pulse 92; Resp 16; Pulse Ox 98% on R/A; em 10:51 BP 116 / 69; Pulse 86; Resp 18; Pulse Ox 97% on R/A; Pain 0/10; em 08:24 Body Mass Index 43.05 (136.08 kg, 177.80 cm) sv ED Course: 08:17 Patient arrived in ED. ds1 08:23 Ariel Lea, GEORGE is Primary Nurse. em 08:25 Triage completed. sv 08:25 Carter Castelan MD is Attending Physician. sharlene 08:26 Arm band placed on. sv 08:26 Patient has correct armband on for positive identification. Bed in low position. Pulse em ox on. NIBP on. 08:26 Patient maintains SpO2 saturation greater than 95% on room air. em 08:55 XRAY Chest (1 view) In Process Unspecified. EDMS 08:55 Initial lab(s) drawn, by me, sent to lab. Inserted saline lock: 20 gauge in right em antecubital area, using aseptic technique. Blood collected. 09:56 CT Chest For PE Angio In Process Unspecified. EDMS 10:12 Jovani Myles DO is Hospitalizing Provider. sharlene 11:25 No provider procedures requiring assistance completed. Patient admitted, IV remains in em place. Administered Medications: 09:00 Drug: NS 0.9% 500 ml Route: IV; Rate: bolus; Site: right antecubital; em 10:53 Follow up: IV Status: Completed infusion; IV Intake: 500ml em 09:03 Drug: Aspirin Chewable Tablet 324 mg Route: PO; em 09:18 Follow up: Response: No adverse reaction em 10:00 Drug: NS 0.9% 1000 ml Route: IV; Rate: 125 ml/hr; Site: right antecubital; em 11:53 Follow up: IV Status: Infusion continued upon admission em 10:04 Drug: Lopressor (metoprolol TARTRATE) 50 mg Route: PO; em 10:53 Follow up: Response: No adverse reaction em 10:10 Drug: PlaVIX (clopidogrel) 300 mg Route: PO; em 10:52 Follow up: Response: No adverse reaction em 10:13 Drug: Heparin (MO Drip) 12 units/kg/hr - (HEParin 42061 units, D5W 500 ml) em {Co-Signature: kg (Celine Jacinto).} Route: IV; Rate: calculated rate; Site: right antecubital; 11:46 Follow up: Response: No adverse reaction; IV Status: Infusion continued upon admission em 10:18 Drug: Heparin (MO-Bolus No thrombolytic) - HEParin 60 units/kg {Co-Signature: kg em (Celine Jacinto).} Route: IVP; Site: right antecubital; 10:53 Follow up: Response: No adverse reaction em 10:26 Drug: Lipitor (atorvastatin) 20 mg Route: PO; em 10:52 Follow up: Response: No adverse reaction em 11:46 Not Given (Patient Refused): morphine 2 mg IVP once; (PAIN>8) RASS on ADMN: Combtv4, em Very Agttd3, Agttd2, Rstlss1, AlertClm0, Drwsy-1, LtSdtn-2, ModSdtn-3, DpSdtn-4, UnArsble-5 x2 11:46 Not Given (Patient Refused): Zofran (Ondansetron) 4 mg IVP once; over 2 minutes em Intake: 10:53 IV: 500ml; Total: 500ml. em Outcome: 10:15 Decision to Hospitalize by Provider. sharlene 11:44 Admitted to Tele accompanied by tech, via stretcher, room 228, with chart, Report em called to GEORGE George 11:44 Condition: stable 11:44 Instructed on the need for admit, Demonstrated understanding of instructions. 11:54 Patient left the ED. em Signatures: Dispatcher [employer] Astrid Terrazas, RN Carter Ramon MD MD cha Munoz, Edgar, RN RN em Sanford, Demi ds1 Celine Casey kg
[2020-12-27] MEDS ORDERED: METOPROLOL TAR 50 MG TAB ONE (10:19)
--- NOTE | 2020-12-27 10:21 | RAD REPORT ---
EXAM DESCRIPTION: CT - Chest For Pe Angio - 12/27/2020 9:56 am CLINICAL HISTORY: CHEST PAIN COMPARISON: Chest Single View dated 12/27/2020 TECHNIQUE: Dynamically enhanced 3 mm thick images of the chest were obtained during administration o f approximately 150mL Isovue 370 IV contrast. Coronal and oblique MIP reconstruction images were gene rated and reviewed. Exam utilizes a protocol to evaluate the pulmonary arterial tree. All CT scans are performed using dose optimization technique as appropriate and may include automated exposure control or mA/KV adjustment according to patient size. FINDINGS: No pulmonary emboli are identified. The aorta as imaged shows no acute or suspicious finding. No pericardial thickening or effusion. Hear t size is upper normal to slightly enlarged. No mass or consolidations seen. Interstitial opacification pattern is prominent mostly due to motion. A mild edema or infiltrate cannot be excluded. No pleural effusion or pleural thickening. No mediastinal or hilar suspicious masses. No chest wall masses or abnormal axillary lymphadenopathy. Limited upper abdomen imaging shows evidence for diffuse fatty infiltration of the liver. IMPRESSION: No pulmonary emboli identified. No mass, consolidation or focal lung parenchymal abnormality. Interstitial pattern is accentuated due to motion. A mild infiltrate or interstitial edema edemacanno t be excluded.
[2020-12-27] MEDS ORDERED: HEPARIN 5000 UNIT/ML 1 ML VIAL ONE ×2 (10:26→14:30)
[2020-12-27] MEDS ORDERED: HEPARIN/D5W 25,000 UNIT/500 ML BAG IV ONE (10:27)
[2020-12-27] MEDS ORDERED: CLOPIDOGREL 75 MG TABLET ONE (10:27)
[2020-12-27] MEDS ORDERED: ATORVASTATIN 20 MG TAB ONE (10:42)
--- NOTE | 2020-12-27 10:49 | P.HP ---
Certification for Inpatient Patient admitted to: Inpatient With expected LOS: >2 Midnights Patient will require the following post-hospital care: None Practitioner: I am a practitioner with admitting privileges, knowledge of patient current condition, hospital course, and medical plan of care. Services: Services provided to patient in accordance with Admission requirements found in Title 42 Section 412.3 of the Code of Federal Regulations Patient History Date of Service: 12/27/20 Primary Care Provider: none Reason for admission: Chest pain History of Present Illness: 25-year-old male with history of hypothyroidism and THC use. Patient reported chest pain this morning when he woke up. It was mainly to the center of the chest. It was associated with some increased sweating. He has been having some chest pain from time to time over the past several days. He denies any significant shortness of breath. He reports using synthetic marijuana many years ago at the age of 17. At that time he suffered a heart attack. He was apparently seen at a facility and life flighted to [facility]. He had a heart catheterization at that time. He does not know the results of that. He is not on any type of heart medication. He came to the ER for further evaluation . In the ER patient was evaluated. No significant ST changes noted. Blood pressure stable. Troponin was elevated at 0.94. CBC unremarkable. CMP reviewed. AST 51, ALT 109. Tsh 31. Free T4 of 0.9. Patient admitted for further evaluation and treatment. ER discuss case with cardiology. 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 -: Hypothyroidism-Stefanie disease -: THC use -: Heart catheterization Psychosocial/ Personal History: Patient is - Family History Mother -: Other (see notes) (Thyroid disease) - Social History Smoking Status: Light Tobacco smoker (1-9 cigarettes/day) Counseled patient to stop smoking for: less than 10 minutes Smoking therapy provided: Yes Patient receptive to therapy: Yes Alcohol use: No CD- Drugs: No Caffeine use: Yes Place of Residence: Home Review of Systems General: As per HPI Eyes: Unremarkable ENT: Unremarkable Respiratory: Unremarkable Cardiovascular: Chest Pain, As per HPI Gastrointestinal: Unremarkable Genitourinary: Unremarkable Musculoskeletal: Unremarkable Integumentary: Unremarkable Neurological: Unremarkable Lymphatics: Unremarkable Physical Examination - Physical Exam General: Alert, In no apparent distress, Oriented x3, Cooperative HEENT: Atraumatic, Normocephalic, Mucous membr. moist/pink Neck: Supple Respiratory: Clear to auscultation bilaterally, Normal air movement Cardiovascular: Normal pulses, Regular rate/rhythm Gastrointestinal: Normal bowel sounds, Soft and benign, Non-distended, No tenderness, No masses, No rebound, No guarding Musculoskeletal: No erythema, No tenderness, No warmth Integumentary: No tenderness/swelling, No erythema, No warmth, No cyanosis Neurological: Normal speech, Normal strength at 5/5 x4 extr, Normal tone, Normal affect - Studies Laboratory Data (last 24 hrs) 12/27/20 08:55: PT 12.7 H, INR 1.10 12/27/20 08:55: WBC 6.40, Hgb 14.8, Hct 43.7, Plt Count 250 12/27/20 08:55: Sodium 139, Potassium 3.9, BUN 9, Creatinine 1.00, Glucose 119 H, Magnesium 2.4, Total Bilirubin 0.5, AST 51 H, ALT 109 H, Alkaline Phosphatase 67, Lipase 70 L Assessment and Plan - Plan Impression: Chest pain secondary to NSTEMI with history of HI related to synthetic marijuana Hypothyroidism THC use Elevated liver function suspect fatty liver disease Plan: Chest pain secondary to NSTEMI with history of HI related to synthetic marijuana: Patient will be admitted for further evaluation and treatment. Will start heparin drip, aspirin, Lipitor and metoprolol. Case discussed with cardiology. Cardiology will possibly plan for heart catheterization later today if not tomorrow morning. Will monitor closely. Will check fasting lipid panel. Will monitor telemetry and cardiac enzymes. Await findings from heart catheterization to further address. Hypothyroidism: Tsh 31, free T4 0.9. Will increase thyroid medication to 150 mcg daily. Recommend to recheck thyroid panel in 4-6 weeks to monitor progress. Further adjustment may be required. This can be done with the help was PCP. THC use : Lifestyle modification education provided. THC cessation education provided. Elevated liver function suspect fatty liver disease: Will check HIV and hepatitis panel. Suspect fatty liver. Patient may require abdominal ultrasound as an outpatient. Discharge Plan: Home Plan to discharge in: 48 Hours - Advance Directives Does patient have a Living Will: No Does patient have a Durable POA for Healthcare: No - Code Status/Comfort Care Code Status Assessed: Yes (Patient is full code) Time Spent Managing Pts Care (In Minutes): 55
[2020-12-27] MEDS ORDERED: HEPARIN/D5W 25,000 UNIT/500 ML BAG IV SCH (11:00)
[2020-12-27] MEDS ORDERED: ONDANSETRON 4 MG/2 ML VIAL IV PRN (11:56)
[2020-12-27] MEDS ORDERED: ACETAMINOPHEN 500 MG TAB PO PRN (11:56)
[2020-12-27] MEDS ORDERED: NITROGLYCERIN 0.4 MG/TAB SL ONE (12:27)
[2020-12-27 13:11] VITALS: BMI 43.0
[2020-12-27] MEDS ORDERED: HEPA 1000U/500MLS 2,000 UNIT/1,000 ML BAG IV ONE (14:24)
[2020-12-27] MEDS ORDERED: LIDOCAINE 1% 20 ML MDV ONE (14:24)
[2020-12-27] MEDS ORDERED: MIDAZOLAM HCL 2 MG/2 ML INJ ONE (14:30)
[2020-12-27] MEDS ORDERED: VERAPAMIL HCL 10 MG/4 ML VIAL IV ONE (14:31)
[2020-12-27] MEDS ORDERED: FENTANYL CITR 100 MCG/2 ML ONE (14:31)
[2020-12-27] MEDS ORDERED: ATROPINE SULF 1 MG/10 ML SYR IV ONE (14:31)
[2020-12-27] MEDS ORDERED: HEPARIN 10,000 UNIT/10 ML VIAL IV ONE (14:31)
[2020-12-27 16:02] VITALS: O2SAT 97
[2020-12-27] MEDS: METOPROLOL TAR 25 MG TAB PO SCH (17:05)
[2020-12-27 18:20] LABS: Troponin I 3.28 ng/mL (0.0-0.045)
[2020-12-27 18:23] LABS: CKMB Creatine Kinase MB 13.9 ng/mL (0.3-3.6)
--- NOTE | 2020-12-27 19:51 | CON ---
Date of Consultation: 12/27/2020 Reason For Consultation: Elevated troponin. History Of Present Illness: This is a 25-year-old male, who comes in with complaints of chest pain o n and off since yesterday, pressure-like along with diaphoresis. The patient claimed that he had a h eart attack when he was 17 years old, but no stent was placed. Past Medical History: Questionable history of coronary artery disease, obesity. Medications: Refer to reconciliation sheet for detailed list. Allergies: NO KNOWN DRUG ALLERGIES. Social History: Smokes marijuana. Drinks on occasion. Does not use any other drugs. Family History: No premature coronary artery disease or cancer. Review of Systems: All systems reviewed and they were negative except for what is mentioned in HPI. Physical Examination: Vital Signs: Reviewed. Head and Neck: Pupils are equal and reactive to light. Intact eye movements. No JVD. No cervical lymphadenopathy. Neck: Supple. Thyroid is not enlarged. Lungs: Clear to auscultation bilaterally. No rhonchi, rales, or crackles. No accessory muscle use. Heart: Regular rate and rhythm. No extra sounds. Abdomen: Soft, nontender. Bowel sounds positive. No organomegaly. No masses or hernia. No rigidi ty or rebound. Extremities: No edema, clubbing, or cyanosis. Intact pulses. SKIN: No rash noted. Neurologic: Alert, awake, oriented x3. No focal deficits appreciated. Investigations: Troponin 0.94. Creatinine is 1.0. Assessment And Recommendations: Nhd-LS-eikkyhhgt myocardial infarction. Obtain echocardiogram. Sta rt him on aspirin and schedule for coronary angiogram this afternoon. The patient has been n.p.o. si nce yesterday. Further recommendation based on angiogram findings. /MODL Voice ID: [id number] Report ID: [id number]
[2020-12-27] MEDS ORDERED: ATORVASTATIN 40 MG TAB PO SCH (21:00)
[2020-12-27 21:42] LABS: Barbiturates NEGATIVE (NEGATIVE); Benzodiazepines POSITIVE (NEGATIVE); Cocaine NEGATIVE (NEGATIVE); METHAMPHETAM NEGATIVE (NEGATIVE); Methadone NEGATIVE (NEGATIVE); Opiates NEGATIVE (NEGATIVE); Phencyclidine NEGATIVE (NEGATIVE); THC Cannibis POSITIVE (NEGATIVE)
--- NOTE | 2020-12-27 22:44 | OP ---
Date of Procedure: 12/27/2020 Surgeon: KENDRA HENAO Procedures Performed: 1.Selective coronary angiogram. 2.LV gram. 3.Left heart catheterization. Indication: Non-ST elevation myocardial infection. Access: Radial artery 6-British closed with TR band. Complications: None. Bleeding: Less than 2 mL. Description Of Procedure: After risks, benefits, and alternatives were explained, the patient agreed to the procedure and signed informed consent. The patient was brought into the cardiac catheterizat ion laboratory, prepped and draped in usual sterile fashion. Then, we accessed the right radial romeo ry using pediatric micropuncture kit, placed a 6-British Slender sheath and then took a 5-British [place] 4.0 catheter into the aortic root, engaged right coronary artery and then took a 6-British JL3.5 cath eter into the aortic root, engaged left main, took standard views, and then took a 6-British angled pi gtail catheter into the aortic root, crossed the aortic valve over the wire into the LV. Obtained LV EDP being 18 mmHg and then upon pullback, there was no gradient noted. We then removed the catheter and the sheath and placed a TR band with good hemostasis. Findings: 1.Left main; large and normal. 2.LAD is a moderate to large size and normal. 3.Left circumflex is normal. 4.RCA is large and normal and dominant circulation. 5.LVEDP of 18 mmHg. 6.Normal LVEF of 55% to 60% with normal wall motion. Conclusions: 1.Normal coronary angiogram. 2.Normal LVEF. 3.Borderline elevated LVEDP. Recommendation: Medical management. SR/MODL Voice ID: [id number] Report ID: [id number]
[2020-12-27 23:46] LABS: CKMB Creatine Kinase MB 7.5 ng/mL (0.3-3.6)
[2020-12-27] MEDS: HYDROCODONE/APAP 7.5/325 MG TAB PO PRN (23:59)
[2020-12-28] MEDS: METOPROLOL TAR 25 MG TAB PO SCH (05:45)
[2020-12-28] MEDS: HYDROCODONE/APAP 7.5/325 MG TAB PO PRN (05:58)
[2020-12-28 06:15] LABS: Absolute Lymphocytes (CBC) 2.5 K/uL (0.7-4.9); Basophils % 0.9 % (0-1.3); Hematocrit 41.4 % (39.6-49.0); Lymphocytes % 37.6 % (15.3-44.8); MPV 9.5 fL (7.6-11.3); RBC Red Blood Cell Count 4.83 M/uL (4.33-5.43)
[2020-12-28 06:23] LABS: Protime INR 1.21
[2020-12-28] MEDS ORDERED: LEVOTHYROXINE SOD 0.125 MG TAB PO SCH (06:30)
[2020-12-28 06:35] LABS: ALT/SGPT 101 U/L (12-78); AST/SGOT 49 U/L (15-37); Alkaline Phosphatase 61 U/L (45-117); BUN Blood Urea Nitrogen 8 mg/dL (7-18); Bicarbonate 31 mmol/L (21-32); Bilirubin Total 0.8 mg/dL (0.2-1.0); Glucose Level 106 mg/dL (74-106); HDL Cholesterol 25 mg/dL (40-60); LDL Cholesterol, Calculated 102 (<130); Magnesium 2.4 mg/dL (1.8-2.4); Protein, Total 8.3 g/dL (6.4-8.2); Sodium Level 140 mmol/L (136-145)
[2020-12-28 06:36] LABS: Troponin I 1.15 ng/mL (0.0-0.045)
--- NOTE | 2020-12-28 08:09 | ECHO ---
HEIGHT: 5 ft 10 in WEIGHT: 300 lb 0 oz DATE OF STUDY: 12/27/[address]: Jovani Myles DO 2-DIMENSIONAL: YES M.MODE: YES DOPPLER: YES COLOR FLOW: YES TDS: YES PORTABLE: NO DEFINITY: NO BUBBLE STUDY: NO DIAGNOSIS: NSTEMI CARDIAC HISTORY: CATHERIZATION: YES SURGERY: NO PROSTHETIC VALVE: NO PACEMAKER: NO MEASUREMENTS (cm) DIASTOLIC (NORMALS) SYSTOLIC (NORMALS) IVSd 1.2 (0.6-1.2) LA Diam 3.3 (1.9-4.0) LVEF 53% LVIDd 4.8 (3.5-5.7) LVIDs 3.5 (2.0-3.5) %FS 27% LVPWd 1.3 (0.6-1.2) Ao Diam 2.9 (2.0-3.7) 2 DIMENSIONAL ASSESSMENT: RIGHT ATRIUM: NORMAL LEFT ATRIUM: NORMAL RIGHT VENTRICLE: NORMAL LEFT VENTRICLE: NORMAL TRICUSPID VALVE: NORMAL MITRAL VALVE: NORMAL PULMONIC VALVE: NORMAL AORTIC VALVE: NORMAL PERICARDIAL EFFUSION: NONE AORTIC ROOT: NORMAL LEFT VENTRICULAR WALL MOTION: UNABLE TO EVALUATE DUE TO POOR WINDOWS. DOPPLER/COLOR FLOW: NORMAL COMMENTS: LEFT VENTRICULAR EJECTION FRACTION APPEARS NORMAL 50-55%. NORMAL DIASTOLIC FUNCTION. UNABLE TO EVALUATE WALL MOTION DUE TO POOR WINDOWS. TECHNOLOGIST: Peggy JAMISON
--- NOTE | 2020-12-28 08:36 | P.DS ---
Admission Date: 12/27/20 Discharge Date: 12/28/20 Primary Care Provider: none Disposition: ROUTINE DISCHARGE Discharge Condition: GOOD Reason for Admission: Chest pain Consultations: Cardiology-Dr. Henao Procedures: COVID: Negative CXR: FINDINGS: Lungs are clear. Heart size is prominent, accentuated by body habitus, portable technique and lordotic positioning. No vascular engorgement. No measurable pleural effusion and no pneumothorax. No acute bony abnormality seen. No acute aortic findings suspected. IMPRESSION: No acute lung parenchymal process. Mild cardiomegaly is suspected but no acute failure or volume overload. A large silhouette may be an artifact of exam positioning. CT Chest: FINDINGS: No pulmonary emboli are identified. The aorta as imaged shows no acute or suspicious finding. No pericardial thickening or effusion. Heart size is upper normal to slightly enlarged. No mass or consolidations seen. Interstitial opacification pattern is prominent mostly due to motion. A mild edema or infiltrate cannot be xcluded. No pleural effusion or pleural thickening. No mediastinal or hilar suspicious masses. No chest wall masses or abnormal axillary lymphadenopathy. Limited upper abdomen imaging shows evidence for diffuse fatty infiltration of the liver. IMPRESSION: No pulmonary emboli identified. No mass, consolidation or focal lung parenchymal abnormality. Interstitial pattern is accentuated due to motion. A mild infiltrate or interstitial edema edemacannot be excluded. ECHO: MEASUREMENTS (cm) DIASTOLIC (NORMALS) SYSTOLIC (NORMALS) IVSd 1.2 (0.6-1.2) LA Diam 3.3 (1.9-4.0) LVEF 53% LVIDd 4.8 (3.5-5.7) LVIDs 3.5 (2.0-3.5) %FS 27% LVPWd 1.3 (0.6-1.2) Ao Diam 2.9 (2.0-3.7) 2 DIMENSIONAL ASSESSMENT: RIGHT ATRIUM: NORMAL LEFT ATRIUM: NORMAL RIGHT VENTRICLE: NORMAL LEFT VENTRICLE: NORMAL TRICUSPID VALVE: NORMAL MITRAL VALVE: NORMAL PULMONIC VALVE: NORMAL AORTIC VALVE: NORMAL PERICARDIAL EFFUSION: NONE AORTIC ROOT: NORMAL LEFT VENTRICULAR WALL MOTION: UNABLE TO EVALUATE DUE TO POOR WINDOWS. DOPPLER/COLOR FLOW: NORMAL COMMENTS: LEFT VENTRICULAR EJECTION FRACTION APPEARS NORMAL 50-55%. NORMAL DIASTOLIC FUNCTION. UNABLE TO EVALUATE WALL MOTION DUE TO POOR WINDOWS. Heart cath: Date of Procedure: 12/27/2020 Surgeon: KENDRA HENAO Procedures Performed: 1. Selective coronary angiogram. 2. LV gram. 3. Left heart catheterization. Indication: Non-ST elevation myocardial infection. Access: Radial artery 6-Bulgarian closed with TR band. Complications: None. Bleeding: Less than 2 mL. Findings: 1. Left main; large and normal. 2. LAD is a moderate to large size and normal. 3. Left circumflex is normal. 4. RCA is large and normal and dominant circulation. 5. LVEDP of 18 mmHg. 6. Normal LVEF of 55% to 60% with normal wall motion. Conclusions: 1. Normal coronary angiogram. 2. Normal LVEF. 3. Borderline elevated LVEDP. Recommendation: Medical management. Medical Problem List: Chest pain secondary to NSTEMI with history of [place] related to synthetic marijuana status post heart catheterization showing normal coronary angiogram, normal left ventricular ejection fraction and borderline elevated left ventricular end- diastolic pressure Hypertension uncontrolled Hypothyroidism Hyperlipidemia THC use Elevated liver function likely secondary to fatty liver disease Suspect underlying obstructive sleep apnea Obesity, BMI 43 Brief History of Present Illness: 25-year-old male with history of hypothyroidism and THC use. Patient reported chest pain this morning when he woke up. It was mainly to the center of the chest. It was associated with some increased sweating. He has been having some chest pain from time to time over the past several days. He denies any significant shortness of breath. He reports using synthetic marijuana many years ago at the age of 17. At that time he suffered a heart attack. He was apparently seen at a facility and life flighted to [facility]. He had a heart catheterization at that time. He does not know the results of that. He is not on any type of heart medication. He came to the ER for further evaluation . In the ER patient was evaluated. No significant ST changes noted. Blood pressure stable. Troponin was elevated at 0.94. CBC unremarkable. CMP reviewed. AST 51, ALT 109. Tsh 31. Free T4 of 0.9. Patient admitted for further evaluation and treatment. ER discuss case with cardiology. Hospital Course: Patient presented with chest pain. Patient reported history of [place] at a younger age due to synthetic marijuana. Patient was admitted for further evaluation and treatment as troponin was elevated suspicious for NSTEMI. Cardiology was consulted. Cardiology recommended heart catheterization to further evaluate. Patient had heart catheterization showing normal coronary angiogram, normal left ventricular ejection fraction and borderline elevated left ventricular end- diastolic pressure. Echocardiogram unremarkable with normal ejection fraction. CT scan showed no pulmonary embolism. At discharge patient without chest pain. Cardiac enzymes have improved. At discharge patient will continue with aspirin 81 mg daily, folic acid 1 mg daily, Lipitor 10 mg daily and metoprolol 12.5 mg 1 pill twice daily. Recommend follow-up with cardiology in 1 to 2 weeks to follow-up his hospitalization. Patient with hypertension. This is uncontrolled. Patient not on any type of medication. Medication was initiated. Blood pressure improved with medication. At discharge patient will continue with metoprolol 12.5 mg 1 pill twice daily. Recommend to maintain blood pressure less than 130/80. Further adjustment may be required. This can be done with the help of his PCP. Education on hypertension provided. Patient with hyperlipidemia. LDL 102. Recommend to initiate medication at discharge. Patient will continue with Lipitor 10 mg daily. Recommend to recheck fasting lipid panel in 4 to 6 weeks to monitor his progress. Recommend to recheck labCMP in 1 to 2 weeks to monitor liver function tests on medication. Further adjustment in medication can be done by his PCP. Lifestyle modification education provided. Patient with hypothyroidism. Patient takes medication. At discharge patient will continue with levothyroxine 150 mcg daily. Recommend to recheck TSH and free T4 in 4 to 6 weeks to monitor his progress. Patient would benefit with endocrinology evaluation as an outpatient to further address and monitor. Patient with THC use. Recommend cessation education. This can be further addressed as an outpatient. Patient with elevated liver function. Fatty liver noted on CT scan. Education on fatty liver provided. Lifestyle modification education provided. Recommend to recheck labCMP in 1 to 2 weeks to monitor his progress especially since the patient will be on statin medication. HIV and hepatitis panel pending at discharge. This can be followed up with his PCP as an outpatient. Patient may have underlying obstructive sleep apnea. Patient would benefit with sleep study as an outpatient to further address. This can be done with the help of his PCP. Vital Signs/Physical Exam: Temp Pulse Resp BP Pulse Ox 97.0 F 84 18 138/75 96 12/28/20 04:00 12/28/20 05:45 12/28/20 06:58 12/28/20 05:45 12/28/20 06:58 General: Alert, In no apparent distress, Oriented x3, Cooperative HEENT: Atraumatic Neck: Supple Respiratory: Clear to auscultation bilaterally, Normal air movement Cardiovascular: Normal pulses, Regular rate/rhythm Gastrointestinal: Normal bowel sounds, No tenderness, No masses, No rebound, No guarding Musculoskeletal: No erythema, No tenderness, No warmth Integumentary: No tenderness/swelling Neurological: Normal speech, Normal strength at 5/5 x4 extr, Normal tone, Normal affect Laboratory Data at Discharge: WBC 6.60 K/uL (4.3-10.9) 12/28/20 05:45 Hgb 14.0 g/dL (13.6-17.9) 12/28/20 05:45 Hct 41.4 % (39.6-49.0) 12/28/20 05:45 Plt Count 242 K/uL (152-406) 12/28/20 05:45 PT 14.0 SECONDS (9.5-12.5) H 12/28/20 05:45 INR 1.21 12/28/20 05:45 APTT 31.7 SECONDS (24.3-36.9) 12/28/20 05:45 Sodium 140 mmol/L (136-145) 12/28/20 05:45 Potassium 4.0 mmol/L (3.5-5.1) 12/28/20 05:45 BUN 8 mg/dL (7-18) 12/28/20 05:45 Creatinine 0.98 mg/dL (0.55-1.3) 12/28/20 05:45 Glucose 106 mg/dL (74-106) 12/28/20 05:45 Magnesium 2.4 mg/dL (1.8-2.4) 12/28/20 05:45 Total Bilirubin 0.8 mg/dL (0.2-1.0) 12/28/20 05:45 AST 49 U/L (15-37) H 12/28/20 05:45 ALT 101 U/L (12-78) H 12/28/20 05:45 Alkaline Phosphatase 61 U/L (45-117) 12/28/20 05:45 Troponin I 1.15 ng/mL (0.0-0.045) H* 12/28/20 05:45 Triglycerides 138 mg/dL (<150) 12/28/20 05:45 Cholesterol 155 mg/dL (<200) 12/28/20 05:45 HDL Cholesterol 25 mg/dL (40-60) L 12/28/20 05:45 Cholesterol/HDL Ratio 6.20 12/28/20 05:45 Lipase 70 U/L (73-393) L 12/27/20 08:55 Home Medications: Levothyroxine Sodium 150 mcg PO [id number] 12/27/20 Aspirin [Aspirin EC 81 MG] 81 mg PO DAILY #90 tablet. 12/28/20 Atorvastatin Calcium [Lipitor] 10 mg PO BEDTIME #30 tab 12/28/20 Folic Acid 1 mg PO DAILY #90 tablet 12/28/20 Metoprolol Tartrate [Lopressor*] 12.5 mg PO BID 6AM 6PM #60 tab 12/28/20 New Medications: Aspirin [Aspirin EC 81 MG] 81 mg PO DAILY #90 tablet. Folic Acid 1 mg PO DAILY #90 tablet Atorvastatin Calcium [Lipitor] 10 mg PO BEDTIME #30 tab Metoprolol Tartrate [Lopressor*] 12.5 mg PO BID 6AM 6PM #60 tab Physician Discharge Instructions: Patient presented with chest pain. Patient reported history of [place] at a younger age due to synthetic marijuana. Patient was admitted for further evaluation and treatment as troponin was elevated suspicious for NSTEMI. Cardiology was consulted. Cardiology recommended heart catheterization to further evaluate. Patient had heart catheterization showing normal coronary angiogram, normal left ventricular ejection fraction and borderline elevated left ventricular end- diastolic pressure. Echocardiogram unremarkable with normal ejection fraction. CT scan showed no pulmonary embolism. At discharge patient without chest pain. Cardiac enzymes have improved. At discharge patient will continue with aspirin 81 mg daily, folic acid 1 mg daily, Lipitor 10 mg daily and metoprolol 12.5 mg 1 pill twice daily. Recommend follow-up with cardiology in 1 to 2 weeks to follow-up his hospitalization. Patient with hypertension. This is uncontrolled. Patient not on any type of medication. Medication was initiated. Blood pressure improved with medication. At discharge patient will continue with metoprolol 12.5 mg 1 pill twice daily. Recommend to maintain blood pressure less than 130/80. Further adjustment may be required. This can be done with the help of his PCP. Education on hypertension provided. Patient with hyperlipidemia. LDL 102. Recommend to initiate medication at discharge. Patient will continue with Lipitor 10 mg daily. Recommend to recheck fasting lipid panel in 4 to 6 weeks to monitor his progress. Recommend to recheck labCMP in 1 to 2 weeks to monitor liver function tests on medication. Further adjustment in medication can be done by his PCP. Lifestyle modification education provided. Patient with hypothyroidism. Patient takes medication. At discharge patient will continue with levothyroxine 150 mcg daily. Recommend to recheck TSH and free T4 in 4 to 6 weeks to monitor his progress. Patient would benefit with endocrinology evaluation as an outpatient to further address and monitor. Patient with THC use. Recommend cessation education. This can be further addressed as an outpatient. Patient with elevated liver function. Fatty liver noted on CT scan. Education on fatty liver provided. Lifestyle modification education provided. Recommend to recheck labCMP in 1 to 2 weeks to monitor his progress especially since the patient will be on statin medication. Hepatitis and HIV panel pending at discharge. This can be followed up as an outpatient. Patient may have underlying obstructive sleep apnea. Patient would benefit with sleep study as an outpatient to further address. This can be done with the help of his PCP. Diet: AHA Activity: Ad nicole Followup: NONE,NONE [Primary Care Provider] - Time spent managing pt's care (in minutes): 55
[2020-12-28 08:40] VITALS: BP 123/82; TEMP 96.5
[2020-12-28] MEDS ORDERED: FOLIC ACID 1 MG TABLET PO SCH (09:00)
[2020-12-31 17:47] LABS: HIV AG/AB 4TH GEN Non-reactive (Non-reactive)
[2020-12-31 19:33] LABS: HBsAG Nonreactive (Nonreactive)
== END 2020-12-28 09:57 | disposition home or self-care (01) | DRG 281 ==
LOC: ER 08:15 → ERHOLD 10:32 → 2ND 11:44
PROVIDERS: ADMIT Family Medicine; ATTEND Family Medicine
PROC: 4A023N7 Measurement of Cardiac Sampling and Pressure, Left Heart, Percutaneous Approach (ICD-10-PCS; principal; 2020-12-27)
PROC: B2111ZZ Fluoroscopy of Multiple Coronary Arteries using Low Osmolar Contrast (ICD-10-PCS; 2020-12-27)
PROC: B2151ZZ Fluoroscopy of Left Heart using Low Osmolar Contrast (ICD-10-PCS; 2020-12-27)
DX: I21.4 Non-ST elevation (NSTEMI) myocardial infarction (principal); Z68.42 Body mass index [BMI] 45.0-49.9, adult; E66.9 Obesity, unspecified; I10 Essential (primary) hypertension; I25.2 Old myocardial infarction; F17.210 Nicotine dependence, cigarettes, uncomplicated; K76.0 Fatty (change of) liver, not elsewhere classified; E03.9 Hypothyroidism, unspecified; E78.5 Hyperlipidemia, unspecified; G47.33 Obstructive sleep apnea (adult) (pediatric); R79.89 Other specified abnormal findings of blood chemistry; Z79.82 Long term (current) use of aspirin; Z79.890 Hormone replacement therapy; Z79.899 Other long term (current) drug therapy; Z20.822 Contact with and (suspected) exposure to COVID-19
CPT/HCPCS: 0240U; 36415; 71045; 71275; 80048; 80053; 80061; 80074; 80076; 80307; 82550; 82553; 83690; 83735; 83880; 84439; 84443; 84484; 85025; 85610; 85730; 87040; 87389; 93005; 93306; 93458; 96361; 96365; 96366; 99285; C1893; J1644; J2250; J3010; J7030; Q9967